=== PATIENT | male | born 1955 | race Caucasian/White ===

== ENCOUNTER 2016-04-25 20:38 | Emergency (ER) | payer BC ==
[2016-04-25] MEDS ORDERED: Pantoprazole 40 MG VIAL ONE (21:22)
[2016-04-25 21:39] LABS: #Basophils 0.1 thou/uL (0.0-0.2); #Eosinphils 0.5 thou/uL (0.0-0.7); #Lymphocytes 1.6 thou/uL (1.20-3.40); #Monocytes 0.6 thou/uL (0.11-0.59); #Neutrophils 4.9 thou/uL (1.40-6.50); %Basophils 1.3 % (0.0-1.0); %Lymphocytes 20.6 % (21.0-51.0); %Monocytes 7.5 % (0.0-10.0); Hematocrit 44.8 % (42.0-52.0); Mean Platelet Volume 10.1 fL (7.4-10.4); Red Blood Cell (RBC) Count 4.96 mill/uL (4.70-6.10); White Blood Cell (WBC) Count 7.7 thou/uL (4.8-10.8)
[2016-04-25 21:49] LABS: PTT 24.3 SEC (22.9-36.1); Prothrombin Time 12.7 SEC (12.0-14.7)
[2016-04-25 21:56] LABS: ALT (SGPT) 57 U/L (0-55); AST (SGOT) 29 U/L (5-34); Alkaline Phosphatase 61 U/L (40-150); Anion Gap 16 mmol/L (10-20); BUN (Urea Nitrogen) 14 mg/dL (8.4-25.7); Bilirubin, Total 0.8 mg/dL (0.2-1.2); Calc. Creatinine Clearance 0 mL/min (70-130); Calcium 8.8 mg/dL (7.8-10.44); Carbon Dioxide 18 mmol/L (22-29); Chloride 101 mmol/L (98-107); Estimated GFR-MDRD 46; Globulin 2.6 g/dL (2.4-3.5); Protein, Total 6.4 g/dL (6.0-8.3)
[2016-04-25] MEDS ORDERED: Lorazepam 2 MG/ML VIAL ONE (22:43)
--- NOTE | 2016-04-25 22:43 | RAD ---
PORTABLE FRONTAL CHEST RADIOGRAPH 04/25/2016 COMPARISON: None. HISTORY: Nasogastric tube placement. FINDINGS: Nasogastric tube is difficult to visualize on this examination secondary to technique and body habit us. It appears to extend into the epigastric region. No focal consolidation or alveolar edema. IMPRESSION: Faintly visualized nasogastric tube appears to extend into the left upper quadrant medially. POS: [facility]
[2016-04-26] MEDS ORDERED: Fentanyl 100 MCG/2 ML VIAL ONE ×2 (00:03→02:32)
[2016-04-26] MEDS ORDERED: Protamine Sulfate 250 MG/25 ML VIAL ONE (07:21)
[2016-04-26] MEDS ORDERED: Pantoprazole 40 MG VIAL ONE ×2 (07:21→07:24)
[2016-04-26] MEDS ORDERED: Sodium Chloride 0.9% 100 ML ONE (07:25)
[2016-04-26 08:00] LABS: #Basophils 0.1 thou/uL (0.0-0.2); #Eosinphils 0.5 thou/uL (0.0-0.7); #Lymphocytes 1.7 thou/uL (1.20-3.40); #Monocytes 0.6 thou/uL (0.11-0.59); #Neutrophils 5.9 thou/uL (1.40-6.50); %Basophils 0.9 % (0.0-1.0); %Eosinophils 5.9 % (0.0-10.0); %Lymphocytes 19.5 % (21.0-51.0); Hematocrit 45.9 % (42.0-52.0); Mean Platelet Volume 10.4 fL (7.4-10.4); Red Blood Cell (RBC) Count 5.08 mill/uL (4.70-6.10); White Blood Cell (WBC) Count 8.9 thou/uL (4.8-10.8)
[2016-04-26 12:31] LABS: #Basophils 0.1 thou/uL (0.0-0.2); #Eosinphils 0.5 thou/uL (0.0-0.7); #Lymphocytes 1.7 thou/uL (1.20-3.40); #Monocytes 0.7 thou/uL (0.11-0.59); #Neutrophils 6.2 thou/uL (1.40-6.50); %Basophils 0.8 % (0.0-1.0); %Eosinophils 5.4 % (0.0-10.0); %Lymphocytes 18.5 % (21.0-51.0); %Monocytes 7.4 % (0.0-10.0); Hematocrit 46.1 % (42.0-52.0); Red Blood Cell (RBC) Count 5.11 mill/uL (4.70-6.10); White Blood Cell (WBC) Count 9.1 thou/uL (4.8-10.8)
--- NOTE | 2016-04-26 14:47 | ERRECORD ---
[facility] EMERGENCY RECORD HPI GI BLEED (23:55 JLOY) CHIEF COMPLAINT: Patient presents for evaluation of hematemesis, Number of times: 1, described as bright red blood, Pt was eating dinner and felt the food 'get stuck' over lower chest. Eventually he vomited small food and bile mixed with a large amount of bright red blood. Still with some epigastric pressure. No more vomiting. Pt has a history of episodes of food feeling stuck over the past year. No previous vomiting. No melena or hematochezia. HISTORIAN: History provided by patient, History provided by patient's family. LOCATION: Symptoms are localized, most severe in the epigastrium. QUALITY: Pain is dull in nature, described as pressure-like. TIME COURSE: Sudden onset of symptoms. ASSOCIATED WITH: No associated abdominal pain, No associated chills, No associated dizziness, No associated fever, No associated loss of appetite, No associated nausea, No associated syncope, No associated inability to tolerate oral intake, Associated with vomiting, Number of times: 1, No associated weakness. EXACERBATED BY: Patient's condition exacerbated by nothing. RELIEVED BY: Patient's condition relieved by nothing. RISK FACTOR: No risk factors for GI bleed. ROS (23:58 JL) CONSTITUTIONAL: Historian denies chills, denies fever. ENT: Historian denies rhinorrhea, denies sore throat. CARDIOVASCULAR: Historian denies dyspnea on exertion, denies palpitations. lower chest pressure. RESPIRATORY: Historian denies cough, denies shortness of breath, denies sputum. GI: Historian denies abdominal pain, denies diarrhea, reports hematemesis, denies hematochezia, denies melena, denies nausea, reports vomiting. SKIN: Historian denies rash, denies skin changes. NEUROLOGIC: Historian denies dizziness, denies headache. PAST MEDICAL HISTORY MEDICAL HISTORY: Notes: HERNIA, Flu vaccine not up to date, Tetanus not up to date, Pneumococcal vaccine not up to date, Past medical history includes history of hypertension. Flu vaccine not up to date, Tetanus not up to date, Pneumococcal vaccine not up to date, Past medical history includes history of diabetes, Type II. (20:53 [facility]) MALE SURGICAL HISTORY: MASS REMOVED FROM SHOULDER (15 YEARS AGO), Surgical history of hernia repair, las kidney stone was over 1 year ago; hx of lithotripsy many yrs ago. (20:53 [facility]) PSYCHIATRIC HISTORY: No previous psychiatric history. (20:53 [facility]) SOCIAL HISTORY: Patient is a former tobacco user, &a-1R&a+25V*p+0X*[id number]*c202B*c15G*c2P*p-0X&a-25V&a+1R Name: Benji Burton : 1955 M60 MedRec: [id number] AcctNum: [id number] Prepared: MonApr 26, 2016 16:09 by Interface Page 1 of 4 pMD [facility] RECORD smoked cigarettes, Patient quit smoking more than 10 years ago. (20:53 [facility]) NOTES: Nursing records reviewed, Agree with nursing records. (23:59 [facility]) KNOWN ALLERGIES No Known Drug Allergies CURRENT MEDICATIONS (20:49 [facility]) lisinopril: TABLET : Strength - 10 mg : ORAL Patient Dose: 1 tab(s) Oral 2 times a day. VITAL SIGNS VITAL SIGNS: Temp: 97.9 (Oral), Time: 04/25/2016 20:50. (20:50 [facility]) BP: 147/91, Pulse: 72, Resp: 16, Pain: 1, O2 sat: 97 on Room Air, Time: 04/25/2016 21:30. (21:30 [facility]) BP: 160/81, Pulse: 67, Resp: 18, Pain: 1, O2 sat: 96 on Room Air, Time: 04/25/2016 20:51. (20:51 [facility]) BP: 136/89, Pulse: 70, Resp: 16, O2 sat: 96 on Room Air, Time: 04/25/2016 21:15. (21:15 [facility]) BP: 136/91, Pulse: 82, Resp: 18, Pain: 5, O2 sat: 93 on Room Air, Time: 04/26/2016 00:15. (MonApr 26, 2016 00:15 [facility]) BP: 136/86, Pulse: 74, Resp: 18, O2 sat: 92 on Room Air, Time: 04/26/2016 02:00. (MonApr 26, 2016 02:00 [facility]) Pain: 5, Time: 04/26/2016 02:30. (MonApr 26, 2016 02:30 [facility]) BP: 148/86, Pulse: 69, Resp: 18, O2 sat: 92 on Room Air, Time: 04/26/2016 03:00. (MonApr 26, 2016 03:00 [facility]) BP: 137/96, Pulse: 73, Resp: 18, Pain: 3, O2 sat: 92 on Room Air, Time: 04/26/2016 04:00. (MonApr 26, 2016 04:00 [facility]) BP: 139/89, Pulse: 75, Resp: 18, O2 sat: 95 on Room Air, Time: 04/26/2016 05:00. (MonApr 26, 2016 05:00 [facility]) BP: PT/, Time: 04/26/2016 02:30. (MonApr 26, 2016 02:30 [facility]) BP: 130/93, Pulse: 75, Resp: 18, O2 sat: 95 on Room Air, Time: 04/26/2016 06:00. (MonApr 26, 2016 06:00 [facility]) BP: 136/94, Pulse: 80, Resp: 18, O2 sat: 95, Time: 04/26/2016 07:46. (MonApr 26, 2016 07:46 JPAR) BP: 120/86, Pulse: 75, Resp: 17, O2 sat: 95, Time: 04/26/2016 09:52. (MonApr 26, 2016 09:52 JPAR) BP: 136/89, Pulse: 77, Resp: 17, O2 sat: 95, Time: 04/26/2016 10:50. (MonApr 26, 2016 10:50 JPAR) BP: 132/87, Pulse: 78, Resp: 18, O2 sat: 95, Time: 04/26/2016 11:41. (MonApr 26, 2016 11:41 JPAR) BP: 122/90, Pulse: 79, Resp: 19, O2 sat: 95, Time: 04/26/2016 12:12. (MonApr 26, 2016 12:12 JPAR) BP: 131/89, Pulse: 82, Resp: 20, Temp: 96.9, Pain: 0, O2 sat: 95 on RA, Time: 04/26/2016 14:22. (MonApr 26, 2016 14:22 [facility]) PHYSICAL EXAM (23:59 JL) &a-1R&a+25V*p+0X*t8943R*c202B*c15G*c2P*p-0X&a-25V&a+1R Name: Benji Burton : 1955 M60 MedRec: [id number] AcctNum: [id number] Prepared: MonApr 26, 2016 16:09 by Interface Page 2 of 4 pMD [facility] RECORD CONSTITUTIONAL: Vital Signs Reviewed, Patient appears non toxic, Patient alert and oriented to person, place and time. EYES: Eye exam included findings of eyelids normal to inspection, Pupils equally round and reactive to light, Conjunctiva normal. ENT: Pharynx exam normal, Uvula exam normal, Tonsil exam normal, Mouth exam normal, mucous membranes moist. NECK: Neck exam included findings of normal range of motion, Trachea midline, no cervical adenopathy. RESPIRATORY CHEST: Respiratory exam included findings of no respiratory distress, Breath sounds clear, No wheezing, No rales, No rhonchi, Chest exam included findings of chest movement symmetrical. CARDIOVASCULAR: Cardiovascular exam included findings of heart rate regular rate and rhythm, Heart sounds normal. ABDOMEN MALE: Abdominal exam included findings of abdomen nontender, Bowel sounds normal. BACK: Back exam included findings of normal inspection. UPPER EXTREMITY: Upper extremity exam included findings of inspection normal, Radial pulse normal, no cyanosis, no clubbing, no edema. LOWER EXTREMITY: Lower extremity exam included findings of inspection normal, no edema, no calf tenderness. NEURO: Jeimy coma scale 15, Neuro exam findings include patient oriented to person, place and time, Speech normal. SKIN: Skin exam included findings of skin warm, dry, and normal in color, no rash. PSYCHIATRIC: Normal affect. MEDICATION ADMINISTRATION SUMMARY Drug Name: Protonix intravenous, Dose Ordered: 8 mg/hr, Route: IV Piggy Back, Status: Given, Time: 07:36 04/26/2016, Drug Name: Protonix intravenous, Dose Ordered: 40 mg, Route: IV Push, Status: Given, Time: 07:34 04/26/2016, Drug Name: fentaNYL (PF) injection, Dose Ordered: 50 mcg, Route: IV Push, Status: Given, Time: 02:37 04/26/2016, Drug Name: fentaNYL (PF) injection, Dose Ordered: 50 mcg, Route: IV Push, Status: Given, Time: 00:13 04/26/2016, Drug Name: LORazepam injection, Dose Ordered: 0.5 mg, Route: IV Push, Status: Given, Time: 22:40 04/25/2016, Drug Name: Protonix intravenous, Dose Ordered: 40 mg, Route: IV Push, Status: Given, Time: 21:32 04/25/2016, Detailed record available in Medication Service section. DOCTOR NOTES RE-EVALUATION: Routine re-evaluation, after observation, Routine re-evaluation, after administration of, protonix, The patient's condition has improved, NG tube drainage clearing up. will recheck H & H. plan Protonix drip. Still awaiting bed at the main. (MonApr 26, 2016 07:20 MP[facility]) Routine re-evaluation, after observation, Routine re-evaluation, after &a-1R&a+25V*p+0X*o1956G*c202B*c15G*c2P*p-0X&a-25V&a+1R Name: Benji Burton : 1955 M60 MedRec: [id number] AcctNum: [id number] Prepared: MonApr 26, 2016 16:09 by Interface Page 3 of 4 pMD [facility] administration of, IV Protonix, Gut rest., No more bleeding. H & H has stabilized. Pt tolerated suction being turned off. Long discussion with pt and spouse concerning discharge and follow up care. Pt overall doing well. Will discharge to have pt follow up with GI. (MonApr 26, 2016 13:17 MPUR) TEXT: Dr. Chance accepted the transfer to [facility] ER. Due to no room in the ER there the patient will hold here until a bed opens up. Discussed with patient and he opted to wait rather than transfer to another hospital. (MonApr 26, 2016 00:28 [facility]) D/W: Discussed this case with Dr. Kain Robert MD, the tax services professional physician, Discussed tx. so far, response, He agreed pt ready for DC. He will see tomorrow in office. (MonApr 26, 2016 16:04 MPUR) PROBLEM LIST No recorded problems DIAGNOSIS (MonApr 26, 2016 00:13 RIKKI) FINAL: PRIMARY: HEMATEMESIS. PRESCRIPTION (MonApr 26, 2016 13:36 MPUR) Protonix oral: TABLET, DELAYED RELEASE (ENTERIC COATED) : 40 mg : ORAL : Quantity: 1 Unit: tab(s) Route: ORAL Schedule: See Notes Dispense: 20 May substitute. Refills: No Refills . NOTES: BID for 6 days, then QHS No Refills. DISPOSITION PATIENT: Disposition Type: Transfer, Disposition: Transfer to [facility]. (MonApr 26, 2016 00:13 RIKKI) Disposition Type: Discharge, Disposition: *Discharge Home. (MonApr 26, 2016 13:35 MPHYUN) Patient left the department. (MonApr 26, 2016 14:32 REID) Neves: RIKKI=MD Dustin, Nguyễn BARBER=BENNY Moreno, Reji CARMONA=BENNY Hdez, Kay MATHEWS=Johana Dunaway=MD Ceferino, Ranjan PRIDE=BENNY Aviles, Octavia &a-1R&a+25V*p+0X*[id number]*c202B*c15G*c2P*p-0X&a-25V&a+1R Name: Benji Burton : 1955 M60 MedRec: [id number] AcctNum: [id number] Prepared: MonApr 26, 2016 16:09 by Interface Page 4 of 4 pMD MTDD
--- NOTE | 2016-04-26 14:49 | PICIS ---
[facility] EMERGENCY RECORD COMMUNICATIONS (MonApr 26, 2016 12:56 JPAR) COMMUNICATIONS: Notes: attempted Dr. Mills by phone 4 times w/o success. ER MD requests consult with head golf professional GI, transfer center contacted for consult. TRIAGE (MonApr 25, 2016 20:49 [facility]) TRIAGE NOTES: WHILE EATING DINNER THIS EVENING, FELT LIKE FOOD GOT STUCK. A FEW MIN LATER PT VOMITED FOOD AND "QUITE A BIT" OF BLOOD. (MonApr 25, 2016 20:49 [facility]) PATIENT: NAME: Benji Burton, AGE: 60, GENDER: male, : Mon1955, TIME OF GREET: MonApr 25, 2016 20:38, PREFERRED LANGUAGE: Mongolian, ETHNICITY: Not or , ECODE BILLING MAP: [facility], SSN: [id number], Zip Code: [address], KG WEIGHT: 88.45 (est.), PHONE: , , , PERSON ID: [id number], PCP: Kasey ALMONTE, GAYLA. (MonApr 25, 2016 20:49 [facility]) COMPLAINT: V BLOOD,EARLIER TODAY. (MonApr 25, 2016 20:49 [facility]) ADMISSION: URGENCY: 3 Urgent, ADMISSION SOURCE: Home, TRANSPORT: CAR, BED: ER -03. (MonApr 25, 2016 20:49 [facility]) ASSESSMENT: Symptoms began 04/25/2016 20:00. (20:53 [facility]) PAIN: Patient complains of pain described as, pressure, on a scale 0-10 patient rates pain as 1, Location CHEST. (20:53 [facility]) IMMUNIZATIONS: Flu vaccine not up to date, Tetanus not up to date, Pneumococcal vaccine not up to date. (20:53 [facility]) SIRS SCORING: Heart Rate 55-109 (0), Temp range 96.8-101.1 (0), respiratory rate 12-24 (0), Mental Status altered: no (0). (20:53 [facility]) TRIAGE SCREENING: Patient denies suicidal ideation, Patient denies presence of domestic violence. (20:53 [facility]) TREATMENTS IN PROGRESS: Treatments given Prehospital: 2 BENADRYL @ 1900. (20:53 [facility]) PROVIDERS: TRIAGE NURSE: Kay Hdez RN. (MonApr 25, 2016 20:49 [facility]) VITAL SIGNS: Temp 97.9, (Oral), Time 04/25/2016 20:50. (20:50 [facility]) PREVIOUS VISIT ALLERGIES: No Known Drug Allergies. (MonApr 25, 2016 20:49 [facility]) No Known Drug Allergies. (20:53 [facility]) KNOWN ALLERGIES No Known Drug Allergies CURRENT MEDICATIONS (20:49 [facility]) lisinopril: TABLET : Strength - 10 mg : ORAL Patient Dose: 1 tab(s) Oral 2 times a day. VITAL SIGNS VITAL SIGNS: Temp: 97.9 (Oral), Time: 04/25/2016 20:50. (20:50 &a-1R&a+25V*p+0X*p4127W*c202B*c15G*c2P*p-0X&a-25V&a+1R Name: Benji Burton Dani : 1955 M60 MedRec: [id number] AcctNum: [id number] Prepared: MonApr 26, 2016 16:15 by Interface Page 1 of 17 pMD [facility] EMERGENCY RECORD [facility]) BP: 147/91, Pulse: 72, Resp: 16, Pain: 1, O2 sat: 97 on Room Air, Time: 04/25/2016 21:30. (21:30 [facility]) BP: 160/81, Pulse: 67, Resp: 18, Pain: 1, O2 sat: 96 on Room Air, Time: 04/25/2016 20:51. (20:51 [facility]) BP: 136/89, Pulse: 70, Resp: 16, O2 sat: 96 on Room Air, Time: 04/25/2016 21:15. (21:15 [facility]) BP: 136/91, Pulse: 82, Resp: 18, Pain: 5, O2 sat: 93 on Room Air, Time: 04/26/2016 00:15. (MonApr 26, 2016 00:15 [facility]) BP: 136/86, Pulse: 74, Resp: 18, O2 sat: 92 on Room Air, Time: 04/26/2016 02:00. (MonApr 26, 2016 02:00 [facility]) Pain: 5, Time: 04/26/2016 02:30. (MonApr 26, 2016 02:30 [facility]) BP: 148/86, Pulse: 69, Resp: 18, O2 sat: 92 on Room Air, Time: 04/26/2016 03:00. (MonApr 26, 2016 03:00 [facility]) BP: 137/96, Pulse: 73, Resp: 18, Pain: 3, O2 sat: 92 on Room Air, Time: 04/26/2016 04:00. (MonApr 26, 2016 04:00 [facility]) BP: 139/89, Pulse: 75, Resp: 18, O2 sat: 95 on Room Air, Time: 04/26/2016 05:00. (MonApr 26, 2016 05:00 [facility]) BP: PT/, Time: 04/26/2016 02:30. (MonApr 26, 2016 02:30 [facility]) BP: 130/93, Pulse: 75, Resp: 18, O2 sat: 95 on Room Air, Time: 04/26/2016 06:00. (MonApr 26, 2016 06:00 [facility]) BP: 136/94, Pulse: 80, Resp: 18, O2 sat: 95, Time: 04/26/2016 07:46. (MonApr 26, 2016 07:46 JPAR) BP: 120/86, Pulse: 75, Resp: 17, O2 sat: 95, Time: 04/26/2016 09:52. (MonApr 26, 2016 09:52 JPAR) BP: 136/89, Pulse: 77, Resp: 17, O2 sat: 95, Time: 04/26/2016 10:50. (MonApr 26, 2016 10:50 JPAR) BP: 132/87, Pulse: 78, Resp: 18, O2 sat: 95, Time: 04/26/2016 11:41. (MonApr 26, 2016 11:41 JPAR) BP: 122/90, Pulse: 79, Resp: 19, O2 sat: 95, Time: 04/26/2016 12:12. (MonApr 26, 2016 12:12 JPAR) BP: 131/89, Pulse: 82, Resp: 20, Temp: 96.9, Pain: 0, O2 sat: 95 on RA, Time: 04/26/2016 14:22. (MonApr 26, 2016 14:22 REZE) NURSING ASSESSMENT: ABDOMEN (20:50 [facility]) CONSTITUTIONAL: Complex assessment performed, Patient arrives ambulatory, Gait steady, History obtained from patient, Patient appears comfortable, Patient cooperative, Patient alert, Oriented to person, place and time, Skin warm, Skin dry, Skin normal in color, Mucous membranes pink, Mucous membranes moist, Patient is well-groomed, Patient complains of VOMITTED BLOOD/CHEST PRESSURE. PAIN: pressure pain, MID CHEST, Onset of pain 04/25/2016 20:00, on a scale 0-10 patient rates pain as 1, PT WAS EATING WHEN FOOD GOT STUCK. STATES HE WAS NOT CHOKING BUT COULD FEEL IT IN HIS CHEST. ABDOMEN: Abdomen assessment findings include abdomen symmetrical, no discolorations, Abdomen soft, non-tender, Bowel sound normal, no associated nausea, Associated with vomiting, history of vomiting, Number of times: 1, PT COMITTED FOOD AND BLOOD. &a-1R&a+25V*p+0X*k4692H*c202B*c15G*c2P*p-0X&a-25V&a+1R Name: Benji Burton : 1955 M60 MedRec: [id number] AcctNum: [id number] Prepared: MonApr 26, 2016 16:15 by Interface Page 2 of 17 pMD [facility] EMERGENCY RECORD SAFETY: Side rails up, Cart/Stretcher in lowest position, Family at bedside, Call light within reach, Hospital ID band on. NURSING ASSESSMENT: SKIN (MonApr 26, 2016 06:02 [facility]) SKIN: Skin assessment findings include skin warm, Skin dry, Skin normal in color, Inspection findings include: No pressure ulcer to the shoulder, Inspection findings include no pressure ulcer to the elbow, Inspection findings include no pressure ulcers to the hip, Inspection findings include no pressure ulcer to the sacrum, Inspection findings include no pressure ulcer to the heel, Inspection findings include no pressure ulcer, Inspection findings include no pressure ulcer. TUBES AND PORTS: Nasogastric tube present, 16Fr, to the right nare, to low intermittent suction, draining coffee ground fluid. NURSING PROCEDURE: BEDSIDE RADIOLOGY (22:29 SBRA) PATIENT IDENTIFIER: Patient actively involved in identification process, Patient's identity verified by patient stating name, Patient's identity verified by hospital ID bracelet. BEDSIDE RADIOLOGY: Bedside radiology performed by COLBY, Portable chest x-ray performed. NURSING PROCEDURE: BEDSIDE SIRS TESTING (MonApr 26, 2016 06:01 [facility]) SCORES: Heart Rate 55-109 (0), Temp range 96.8-101.1 (0), respiratory rate 12-24 (0), Latest WBC 3-14.9 (0), Mental Status altered: no (0), Infection or Suspected Infection: No. NURSING PROCEDURE: BELONGINGS (MonApr 26, 2016 03:12 KASA) BELONGINGS: boots, Belongings sent home with family member, name: Kyra -. NURSING PROCEDURE: COMMUNICATIONS COMMUNICATIONS: Admissions department, notified at 2339, Person contacted Barbara in transfer center, Contacted to check bed status, ERMD requesting to transfer patient to [facility] for higher level of care. Informed nurse that if transferred will need to hold pt at current facility as there is no ER bed available at this time. ERMD informed and will discuss with patient and family. Will call back. (23:39 KASA) Admissions department, notified at 0009 called back, Person contacted Barbara in transfer center, Contacted to admit the patient, Transfer centered contacted per ERMD to start transfer process to [facility] Dx: Upper GI Bleed Accepting MD: Meron @0012 Accepting [facility] Admin: Sung JeffyLynnesteban. Doc to Doc complete. (MonApr 26, 2016 00:12 KASA) Notes: TRANSFER CENTER CONTACTED ABOUT TRANSFER STATUS. TRANSFER &a-1R&a+25V*p+0X*f7124E*c202B*c15G*c2P*p-0X&a-25V&a+1R Name: Benji Burton Dani : 1955 M60 MedRec: [id number] AcctNum: [id number] Prepared: MonApr 26, 2016 16:15 by Interface Page 3 of 17 D [facility] EMERGENCY RECORD CENTER WILL CONTACT ED AT 0800 WITH UPDATE ON STATUS. (MonApr 26, 2016 04:00 [facility]) NURSING PROCEDURE: DISCHARGE NOTE (MonApr 26, 2016 14:22 REZE) DISCHARGE: Patient discharged to home, ambulating without assistance, family driving, accompanied by //partner, Summary of Care printed/ provided, Patient requested and was provided an electronic copy of Discharge Instructions, Transition record given to patient, Discharge instructions given to patient, Simple or moderate discharge teaching performed, by OCTAVIA AVILES RN, Instructed to follow up with GI doctor on April 28 and doctor Gene. If symptoms worsen before follow up return to Er. Soft bland diet. Drink plenty of fluids and take medication as prescribed, Prescriptions given and instructions on side effects given, Name of prescription(s) given: protonix, Above person(s) verbalized understanding of discharge instructions and follow-up care. BELONGINGS: Belongings remain with patient, Valuables remain with patient. VITAL SIGNS: BP: 131, / 89, Pulse: 82, Resp: 20, Temp: 96.9, Pain: 0, O2 sat: 95, on: RA. NURSING PROCEDURE: EKG CHART (20:56 [facility]) PATIENT IDENTIFIER: Patient actively involved in identification process, Patient's identity verified by patient stating name, Patient's identity verified by patient stating date, Patient's identity verified by hospital ID bracelet. EK lead EKG performed on the left chest, done by BENNY MITCHELL, first EKG. NURSING PROCEDURE: GASTRIC TUBE (22:15 [facility]) GASTRIC TUBE: Gastric tube indicated for possible gastrointestinal bleed, 16fr gastric tube inserted, into the right nare, in two attempts, Placement verified by auscultation, Placement verified by patient able to speak without difficulty, Placement verified by x-ray, Gastric tube to low intermittent suction, Lavaged with saline, amount (mL) 500, Wall suction used, Total output (mL) 500, Gastroccult positive, Control line positive. NURSING PROCEDURE: INTAKE AND OUTPUT (22:45 [facility]) INTAKE AND OUTPUT: Gastric tube intake(ml): 500, Total Intake (ml): 500ml, Gastric tube output(ml): 500, Total Output (ml): 500ml, Grand Total: Output is equal to intake. NURSING PROCEDURE: IV PATIENT IDENITIFIER: Patient actively involved in identification process, Patient's identity verified by patient stating name, Patient's identity verified by patient stating date, Patient's identity verified by hospital ID bracelet. (21:30 [facility]) IV SITE 1: IV established, to the right antecubital, using an 18 gauge catheter, in one attempt, IV site prepped with Chloroprep, &a-1R&a+25V*p+0X*n6160C*c202B*c15G*c2P*p-0X&a-25V&a+1R Name: Benji Burton : 1955 M60 MedRec: [id number] AcctNum: [id number] Prepared: MonApr 26, 2016 16:15 by Interface Page 4 of 17 pMD [facility] EMERGENCY RECORD Saline lock established, Flushed with normal saline (mls): 10mLs, Labs drawn at time of placement, labeled in the presence of the patient and sent to lab, Notes: IV site C/D/I. no pain, redness, or swelling. IV start kit/extension tubing used. (21:30 [facility]) FOLLOW-UP SITE 1: After procedure, 2x2 dressing applied, IV discontinued, due to patient being discharged, catheter intact. (MonApr 26, 2016 14:20 REZE) SAFETY: Side rails up, Cart/Stretcher in lowest position, Call light within reach, Hospital ID band on. (21:30 [facility]) NURSING PROCEDURE: LAB DRAW PATIENT IDENTIFIER: Patient actively involved in identification process, Patient's identity verified by patient stating name, Patient's identity verified by patient stating date, Patient's identity verified by hospital ID bracelet, Patient's identity verified by family member. (MonApr 26, 2016 07:52 JPAR) Patient actively involved in identification process, Patient's identity verified by patient stating name, Patient's identity verified by patient stating date, Patient's identity verified by hospital ID bracelet, Patient's identity verified by family member. (MonApr 26, 2016 12:20 JPAR) LAB DRAW: Lab draw indicated for inability to obtain labs from IV site, Lab draw indicated for obtaining specimens for evaluation, Subsequent lab draw performed, by venipuncture, from left hand, in one attempt, Lab specimens labeled in the presence of the patient and sent to lab. (MonApr 26, 2016 07:52 JPAR) Lab draw indicated for inability to obtain labs from IV site, Lab draw indicated for obtaining specimens for evaluation, Subsequent lab draw performed, by venipuncture, from right hand, in one attempt, Lab specimens labeled in the presence of the patient and sent to lab. (MonApr 26, 2016 12:20 JPAR) FOLLOW-UP: After procedure, dressing applied to site, After procedure, no swelling at site, After procedure, no active bleeding from site. (MonApr 26, 2016 07:52 JPAR) After procedure, dressing applied to site, After procedure, no swelling at site, After procedure, no active bleeding from site. (MonApr 26, 2016 12:20 JPAR) SAFETY: Side rails up, Cart/Stretcher in lowest position, Family at bedside, Call light within reach, Hospital ID band on. (MonApr 26, 2016 07:52 JPAR) Side rails up, Cart/Stretcher in lowest position, Family at bedside, Call light within reach, Hospital ID band on. (MonApr 26, 2016 12:20 JPAR) NURSING PROCEDURE: NURSE NOTES NURSES NOTES: Patient assisted to bathroom with steady gait. (MonApr 26, 2016 01:40 [facility]) Notes: PT RESTING QUIETLY IN BED. LIGHTS OFF. WARM BLANKET GIVEN TO PT AND PTS FOR COMFORT. NAD. RR EVEN AND UNLABORED. VSS. (MonApr 26, 2016 02:15 [facility]) &a-1R&a+25V*p+0X*m8113V*c202B*c15G*c2P*p-0X&a-25V&a+1R Name: Benji Burton Dani : 1955 M60 MedRec: [id number] AcctNum: [id number] Prepared: MonApr 26, 2016 16:15 by Interface Page 5 of 17 pMD [facility] EMERGENCY RECORD Notes: PT REQUESTING PAIN MEDS. MADE AWARE. ORDER RECEIVED FOR 50MCG FENTANYL. PT IN NAD. RR EVEN AND UNLABORED. HOB ELEVATED. VSS. AT BEDSIDE. (MonApr 26, 2016 02:30 [facility]) Notes: PT RESTING QUIETLY IN BED. REPORTS SLIGHT HEADACHE RATED 3/10. DESCRIBED TOLERABLE. NO PAIN MEDS NEEDED AT THIS TIME. RR EVEN AND UNLABORED. NAD. VSS. HOB ELEVATED. (MonApr 26, 2016 04:00 [facility]) Notes: PT ASLEEP IN BED. HOB ELEVATED. NAD. RR EVEN AND UNLABORED. VSS. (MonApr 26, 2016 05:00 [facility]) Notes: PT ASLEEP IN BED IN NAD. RR EVEN AND UNLABORED. VSS. HOB ELEVATED. NG TUBE ON LOW INTERMITTENT SUCTION. WAITING FOR BED AT [facility]. (MonApr 26, 2016 06:23 [facility]) Patient in no apparent distress, Notes: Pt up to restroom in no distress vitals stable no visible blood present in suction container. after pt uses restroom ice chips given to keep mouth moist and pt reconnected to monitors. IV line is flushed without complications. (MonApr 26, 2016 07:15 JPAR) Notes: Pt spouse at bedside, pt informed of plan of care, will contact transfer center @ 8am to check on status of transfer. (MonApr 26, 2016 07:40 JPAR) Patient in no apparent distress, Patient re-positioned to high Lopez's position, Notes: Transfer center contacted, no bed available anytime soon per Kelley at transfer center. Pt informed that no bed available. (MonApr 26, 2016 08:08 JPAR) Patient in no apparent distress, Notes: Suction to NG turned off per MD verbal order, pt H&H to be redrawn @ 12:00 and at that time will contact Dr. Mills with results and if no complications can discharge pt home on protonix and follow up with GI in office. (MonApr 26, 2016 10:05 JPAR) Patient in no apparent distress, Notes: IV site checked no issues present IV protonix running w/o signs of infiltration. (MonApr 26, 2016 11:42 JPAR) Notes: Follow up appointment for Pt set up with Dr. Kain Robert in [place] at office Apr 28 at 9am. Information given to pt spouse. (MonApr 26, 2016 13:47 JPAR) Beverage given to patient, Notes: NGT discontinued and cup of water given to patient. If tolerates will dc home. (MonApr 26, 2016 13:56 REZE) Notes: output from gastric tube 300 ml. (MonApr 26, 2016 14:00 REZE) ORDER DETAILS Order Name: VENEER STOCK GRADER ED, Status: Done, Time: 21:35 04/25/2016, User: KRISTINE, - Ordered for: MD Chan Joshua, - Entered by: MD Chan Joshua - MonApr 25, 2016 21:16, - Quantity: 1, Order Name: CBC with Differential, Status: Active, Time: 12:15 04/26/2016, User: ELISABETH, &a-1R&a+25V*p+0X*g8237H*c202B*c15G*c2P*p-0X&a-25V&a+1R Name: Benji Burton : 1955 M60 MedRec: [id number] AcctNum: [id number] Prepared: MonApr 26, 2016 16:15 by Interface Page 6 of 17 [facility] EMERGENCY RECORD - Ordered for: MD De La Vega Marcus, - Entered by: BENNY Moreno Jason - MonApr 26, 2016 12:15, - Quantity: 1, Order Name: CBC with Differential, Status: Active, Time: 21:16 04/25/2016, User: RIKKI, - Ordered for: MD Chan Joshua, - Entered by: MD Chan Joshua - Kayden Apr 25, 2016 21:16, - Quantity: 1, Order Name: CBC with Differential, Status: Active, Time: 07:11 04/26/2016, User: RIKKI, - Ordered for: MD Chan Joshua, - Entered by: MD Chan Joshua - MonApr 26, 2016 07:11, - Quantity: 1, Order Name: Comprehensive Metabolic Panel, Status: Active, Time: 21:16 04/25/2016, User: RIKKI, - Ordered for: MD Chan Joshua, - Entered by: MD Chan Joshua - [facility] Apr 25, 2016 21:16, - Quantity: 1, Order Name: EKG 12 Lead in Emergency Room, Status: Active, Time: 05:31 04/26/2016, User: KRISTINE, - Ordered for: MD Chan Joshua, - Entered by: BENNY Hdez Lacey - MonApr 26, 2016 05:31, - Quantity: 1, Order Name: GASTRIC LAVAGE ED, Status: Done, Time: 23:00 04/25/2016, User: KRISTINE, - Ordered for: MD Chan Joshua, - Entered by: MD Chan Joshua - Kayden Apr 25, 2016 23:00, - Quantity: 1, Order Name: Miscellaneous Nurse Order(s), Status: Done, Time: 13:47 04/26/2016, User: ELISABETH, - Ordered for: MD De La Vega Marcus, - Entered by: MD De La Vega Marcus - Apr 26, 2016 13:44, - Quantity: 1, Order Name: NG TUBE PLACEMENT ED, Status: Done, Time: 05:32 04/26/2016, User: KRISTINE, - Ordered for: MD Chan Joshua, - Entered by: BENNY Hdez Lacey - Apr 26, 2016 05:31, - Quantity: 1, Order Name: Occult Blood, Gastric, Status: Active, Time: 23:02 04/25/2016, User: RIKKI, - Ordered for: MD Chan Joshua, - Entered by: MD Chan Joshua - Mon Apr 25, 2016 23:02, - Quantity: 1, Order Name: Protime with INR, Status: Active, Time: 21:16 04/25/2016, User: RIKKI, - Ordered for: MD Chan Joshua, - Entered by: MD Chan Joshua - Kayden Apr 25, 2016 21:16, - Quantity: 1, Order Name: PTT, Status: Active, Time: 21:16 04/25/2016, User: RIKKI, - Ordered for: MD Chan Joshua, &a-1R&a+25V*p+0X*d0985U*c202B*c15G*c2P*p-0X&a-25V&a+1R Name: Benji Burton : 1955 M60 MedRec: [id number] AcctNum: [id number] Prepared: MonApr 26, 2016 16:15 by Interface Page 7 of 17 [facility] EMERGENCY RECORD - Entered by: MD Chan Joshua - Mon Apr 25, 2016 21:16, - Quantity: 1, Order Name: SALINE LOCK, Status: Done, Time: 21:35 04/25/2016, User: [facility], - Ordered for: MD Chan Joshua, - Entered by: MD Chan Joshua - Mon Apr 25, 2016 21:16, - Quantity: 1, Order Name: XR Chest 1 View Portable, Status: Active, Time: 22:28 04/25/2016, User: [facility], - Ordered for: MD Chan Joshua, - Entered by: BENNY Hdez Lacey - Mon Apr 25, 2016 22:28, - Quantity: 1. MEDICATION ADMINISTRATION SUMMARY Drug Name: Protonix intravenous, Dose Ordered: 8 mg/hr, Route: IV Piggy Back, Status: Given, Time: 07:36 04/26/2016, Drug Name: Protonix intravenous, Dose Ordered: 40 mg, Route: IV Push, Status: Given, Time: 07:34 04/26/2016, Drug Name: fentaNYL (PF) injection, Dose Ordered: 50 mcg, Route: IV Push, Status: Given, Time: 02:37 04/26/2016, Drug Name: fentaNYL (PF) injection, Dose Ordered: 50 mcg, Route: IV Push, Status: Given, Time: 00:13 04/26/2016, Drug Name: LORazepam injection, Dose Ordered: 0.5 mg, Route: IV Push, Status: Given, Time: 22:40 04/25/2016, Drug Name: Protonix intravenous, Dose Ordered: 40 mg, Route: IV Push, Status: Given, Time: 21:32 04/25/2016, Detailed record available in Medication Service section. MEDICATION SERVICE fentaNYL (PF) injection: Order: fentaNYL (PF) injection (fentanyl citrate/preservative free) - Dose: 50 mcg : IV Push Ordered by: Nguyễn Chan MD Entered by: Nguyễn Chan MD Apr 26, 2016 00:01 , Acknowledged by: Kay Hdez RN dani Apr 26, 2016 00:02 Documented as given by: Kay Hdez RN dani Apr 26, 2016 00:13 Patient, Medication, Dose, Route and Time verified prior to administration. Amount given: 50MCG, IV SITE #1 IVP, subsequent different medication, Slowly, Awake and alert- acceptable, Catheter placement confirmed via flush prior to administration, IV site without signs or symptoms of infiltration during medication administration, No swelling during administration, No drainage during administration, IV flushed after administration, Correct patient, time, route, dose and medication confirmed prior to administration, Patient advised of actions and side-effects prior to administration, Allergies confirmed and medications reviewed prior to administration. fentaNYL (PF) injection: Order: fentaNYL (PF) injection (fentanyl citrate/preservative free) - Dose: 50 mcg : IV &a-1R&a+25V*p+0X*p8097C*c202B*c15G*c2P*p-0X&a-25V&a+1R Name: Benji Burton : 1955 M60 MedRec: [id number] AcctNum: [id number] Prepared: MonApr 26, 2016 16:15 by Interface Page 8 of 17 pMD [facility] EMERGENCY RECORD Push Ordered by: Nguyễn Chan MD Entered by: Nguyễn Chan MD MonApr 26, 2016 02:33 Documented as given by: Kay Hdez RN MonApr 26, 2016 02:37 Patient, Medication, Dose, Route and Time verified prior to administration. Amount given: 50MCG, IV SITE #1 IVP, repeat same medication, Slowly, Awake and alert- acceptable, Catheter placement confirmed via flush prior to administration, IV site without signs or symptoms of infiltration during medication administration, No swelling during administration, No drainage during administration, IV flushed after administration, Correct patient, time, route, dose and medication confirmed prior to administration, Patient advised of actions and side-effects prior to administration, Allergies confirmed and medications reviewed prior to administration. LORazepam injection: Order: LORazepam injection (lorazepam) - Dose: 0.5 mg : IV Push Ordered by: Nguyễn Chan MD Entered by: Nguyễn Chan MD MonApr 26, 2016 00:01 Documented as given by: Kay Hdez RN [facility] Apr 25, 2016 22:40 Patient, Medication, Dose, Route and Time verified prior to administration. Amount given: 0.5MG, IV SITE #1 IVP, initial medication, Slowly, Awake and alert- acceptable, Catheter placement confirmed via flush prior to administration, IV site without signs or symptoms of infiltration during medication administration, No swelling during administration, No drainage during administration, IV flushed after administration, Correct patient, time, route, dose and medication confirmed prior to administration, Patient advised of actions and side-effects prior to administration, Allergies confirmed and medications reviewed prior to administration. Protonix intravenous: Order: Protonix intravenous (pantoprazole sodium) - Dose: 40 mg : IV Push Ordered by: Nguyễn Chan MD Entered by: Nguyễn Chan MD MonApr 25, 2016 21:18 , Acknowledged by: Bridgette Masterson RN MonApr 25, 2016 21:23 Documented as given by: Kay Hdez RN MonApr 25, 2016 21:32 Patient, Medication, Dose, Route and Time verified prior to administration. Amount given: 40MG, IV SITE #1 IVP, initial medication, Slowly, Awake and alert- acceptable, Catheter placement confirmed via flush prior to administration, IV site without signs or symptoms of infiltration during medication administration, No swelling during administration, No drainage during administration, IV flushed after administration, Correct patient, time, route, dose and medication confirmed prior to administration, Patient advised of actions and side-effects prior to administration, Allergies confirmed and medications reviewed prior to administration. Protonix intravenous: Order: Protonix intravenous (pantoprazole sodium) - Dose: 40 mg : IV Push &a-1R&a+25V*p+0X*l5335M*c202B*c15G*c2P*p-0X&a-25V&a+1R Name: Benji Burton : 1955 M60 MedRec: [id number] AcctNum: [id number] Prepared: MonApr 26, 2016 16:15 by Interface Page 9 of 17 pMD [facility] EMERGENCY RECORD Ordered by: Ranjan De La Vega MD Entered by: Ranjan De La Vega MD MonApr 26, 2016 07:16 , Acknowledged by: Reji Moreno RN MonApr 26, 2016 07:19 Documented as given by: Reji Moreno RN MonApr 26, 2016 07:34 Patient, Medication, Dose, Route and Time verified prior to administration. IV SITE #1 IVP, initial medication, Slowly, Awake and alert- acceptable, Connections checked prior to administration, Line traced prior to administration, Catheter placement confirmed via flush prior to administration, IV site without signs or symptoms of infiltration during medication administration, No swelling during administration, No drainage during administration, IV flushed after administration, Correct patient, time, route, dose and medication confirmed prior to administration, Patient advised of actions and side-effects prior to administration, Allergies confirmed and medications reviewed prior to administration, Patient in position of comfort, Side rails up, Cart in lowest position, Call light in reach. : Follow Up : Response assessment performed, No signs or symptoms of allergic reaction noted, Decreased pain, Decreased symptoms, Site inspection shows, No swelling at administration site, No drainage at administration site, No bleeding at site, No bruising noted at site, _IV SITE #1:_, IV Line flushed after administration, Advised not to ambulate without assistance, Patient in position of comfort, Side rails up, Cart in lowest position, Family at bedside, Call light in reach. (MonApr 26, 2016 08:00 JPMT) Protonix intravenous: Order: Protonix intravenous (pantoprazole sodium) - Dose: 8 mg/hr : IV Piggy Back Ordered by: Ranjan De La Vega MD Entered by: Ranjan De La Vega MD MonApr 26, 2016 07:17 , Acknowledged by: Reji Moreno RN MonApr 26, 2016 07:19 Documented as given by: Reji Moreno RN MonApr 26, 2016 07:36 Patient, Medication, Dose, Route and Time verified prior to administration. IV SITE #1 IVPB or drip, initial infusion, IVPB mixed in: 100ml, Fluid: 0.9NS, Awake and alert- acceptable, Connections checked prior to administration, Line traced prior to administration, Catheter placement confirmed via flush prior to administration, IV site without signs or symptoms of infiltration during medication administration, No swelling during administration, No drainage during administration, IV flushed after administration, Correct patient, time, route, dose and medication confirmed prior to administration, Patient advised of actions and side-effects prior to administration, Allergies confirmed and medications reviewed prior to administration, Patient in position of comfort, Side rails up, Cart in lowest position, Call light in reach. HPI GI BLEED (23:55 JLOY) CHIEF COMPLAINT: Patient presents for evaluation of hematemesis, Number of times: 1, described as &a-1R&a+25V*p+0X*n6623S*c202B*c15G*c2P*p-0X&a-25V&a+1R Name: Benji Burton : 1955 M60 MedRec: [id number] AcctNum: [id number] Prepared: MonApr 26, 2016 16:15 by Interface Page 10 of 17 pMD [facility] EMERGENCY RECORD bright red blood, Pt was eating dinner and felt the food 'get stuck' over lower chest. Eventually he vomited small food and bile mixed with a large amount of bright red blood. Still with some epigastric pressure. No more vomiting. Pt has a history of episodes of food feeling stuck over the past year. No previous vomiting. No melena or hematochezia. HISTORIAN: History provided by patient, History provided by patient's family. LOCATION: Symptoms are localized, most severe in the epigastrium. QUALITY: Pain is dull in nature, described as pressure-like. TIME COURSE: Sudden onset of symptoms. ASSOCIATED WITH: No associated abdominal pain, No associated chills, No associated dizziness, No associated fever, No associated loss of appetite, No associated nausea, No associated syncope, No associated inability to tolerate oral intake, Associated with vomiting, Number of times: 1, No associated weakness. EXACERBATED BY: Patient's condition exacerbated by nothing. RELIEVED BY: Patient's condition relieved by nothing. RISK FACTOR: No risk factors for GI bleed. ROS (23:58 JLOY) CONSTITUTIONAL: Historian denies chills, denies fever. ENT: Historian denies rhinorrhea, denies sore throat. CARDIOVASCULAR: Historian denies dyspnea on exertion, denies palpitations. lower chest pressure. RESPIRATORY: Historian denies cough, denies shortness of breath, denies sputum. GI: Historian denies abdominal pain, denies diarrhea, reports hematemesis, denies hematochezia, denies melena, denies nausea, reports vomiting. SKIN: Historian denies rash, denies skin changes. NEUROLOGIC: Historian denies dizziness, denies headache. PAST MEDICAL HISTORY MEDICAL HISTORY: Notes: HERNIA, Flu vaccine not up to date, Tetanus not up to date, Pneumococcal vaccine not up to date, Past medical history includes history of hypertension. Flu vaccine not up to date, Tetanus not up to date, Pneumococcal vaccine not up to date, Past medical history includes history of diabetes, Type II. (20:53 [facility]) MALE SURGICAL HISTORY: MASS REMOVED FROM SHOULDER (15 YEARS AGO), Surgical history of hernia repair, las kidney stone was over 1 year ago; hx of lithotripsy many yrs ago. (20:53 [facility]) PSYCHIATRIC HISTORY: No previous psychiatric history. (20:53 [facility]) SOCIAL HISTORY: Patient is a former tobacco user, smoked cigarettes, Patient quit smoking more than 10 years ago. (20:53 [facility]) NOTES: Nursing records reviewed, Agree with nursing records. &a-1R&a+25V*p+0X*e6322V*c202B*c15G*c2P*p-0X&a-25V&a+1R Name: Benji Burton : 1955 M60 MedRec: [id number] AcctNum: [id number] Prepared: Lynne Apr 26, 2016 16:15 by Interface Page 11 of 17 pMD [facility] EMERGENCY RECORD (23:59 JL) PHYSICAL EXAM (23:59 JL) CONSTITUTIONAL: Vital Signs Reviewed, Patient appears non toxic, Patient alert and oriented to person, place and time. EYES: Eye exam included findings of eyelids normal to inspection, Pupils equally round and reactive to light, Conjunctiva normal. ENT: Pharynx exam normal, Uvula exam normal, Tonsil exam normal, Mouth exam normal, mucous membranes moist. NECK: Neck exam included findings of normal range of motion, Trachea midline, no cervical adenopathy. RESPIRATORY CHEST: Respiratory exam included findings of no respiratory distress, Breath sounds clear, No wheezing, No rales, No rhonchi, Chest exam included findings of chest movement symmetrical. CARDIOVASCULAR: Cardiovascular exam included findings of heart rate regular rate and rhythm, Heart sounds normal. ABDOMEN MALE: Abdominal exam included findings of abdomen nontender, Bowel sounds normal. BACK: Back exam included findings of normal inspection. UPPER EXTREMITY: Upper extremity exam included findings of inspection normal, Radial pulse normal, no cyanosis, no clubbing, no edema. LOWER EXTREMITY: Lower extremity exam included findings of inspection normal, no edema, no calf tenderness. NEURO: Jeimy coma scale 15, Neuro exam findings include patient oriented to person, place and time, Speech normal. SKIN: Skin exam included findings of skin warm, dry, and normal in color, no rash. PSYCHIATRIC: Normal affect. EVENTS TRANSFER: Triage to Emergency Emergency Room -03. (20:49 [facility]) Emergency Emergency Room -03 to Waiting (Hold Bed). (MonApr 26, 2016 02:52 KASA) Emergency Emergency Room -03 to Waiting (Hold Bed). (MonApr 26, 2016 02:53 KASA) Return to Emergency Emergency Room -03. (MonApr 26, 2016 13:14 JPAR) Emergency Emergency Room -03 to Holding. (MonApr 26, 2016 13:14 JPAR) Emergency Holding to Emergency Room -03. (MonApr 26, 2016 13:18 JPAR) Emergency Emergency Room -03 to Holding (Hold Bed). (MonApr 26, 2016 13:19 JPAR) Removed from Emergency Emergency Room -03. (MonApr 26, 2016 14:32 MCBE) DOCTOR NOTES RE-EVALUATION: Routine re-evaluation, after observation, Routine re-evaluation, after administration of, protonix, The patient's condition has improved, NG tube drainage clearing up. will recheck H & H. plan Protonix drip. Still awaiting bed at the main. (MonApr 26, 2016 07:20 MPUR) Routine re-evaluation, after observation, Routine re-evaluation, after &a-1R&a+25V*p+0X*c4449U*c202B*c15G*c2P*p-0X&a-25V&a+1R Name: Benji Burton Dani : 1955 M60 MedRec: [id number] AcctNum: [id number] Prepared: MonApr 26, 2016 16:15 by Interface Page 12 of 17 pMD [facility] EMERGENCY RECORD administration of, IV Protonix, Gut rest., No more bleeding. H & H has stabilized. Pt tolerated suction being turned off. Long discussion with pt and spouse concerning discharge and follow up care. Pt overall doing well. Will discharge to have pt follow up with GI. (MonApr 26, 2016 13:17 MPUR) TEXT: Dr. Chance accepted the transfer to [facility] ER. Due to no room in the ER there the patient will hold here until a bed opens up. Discussed with patient and he opted to wait rather than transfer to another hospital. (MonApr 26, 2016 00:28 JLOY) D/W: Discussed this case with Dr. Kain Robert MD, the head golf professional physician, Discussed tx. so far, response, He agreed pt ready for DC. He will see tomorrow in office. (MonApr 26, 2016 16:04 MPUR) PROBLEM LIST No recorded problems DIAGNOSIS (MonApr 26, 2016 00:13 JLOY) FINAL: PRIMARY: HEMATEMESIS. DISPOSITION PATIENT: Disposition Type: Transfer, Disposition: Transfer to [facility]. (MonApr 26, 2016 00:13 JLOY) Disposition Type: Discharge, Disposition: *Discharge Home. (MonApr 26, 2016 13:35 MPUR) Patient left the department. (MonApr 26, 2016 14:32 MCBE) INSTRUCTION (MonApr 26, 2016 13:47 MPUR) DISCHARGE: HEMATEMESIS STABLE. FOLLOWUP: Kasey ALMONTE, [facility], Internal Medicine, [address] [facility] [place] [place] [address], [phone], Kasey ROBERT, [place], Gastroenterology, [address] [place] [address], [phone]. SPECIAL: Soft, bland diet, liquids. Follow up with GI appointment [address] am [address] Robert. PRESCRIPTION (MonApr 26, 2016 13:36 MPUR) Protonix oral: TABLET, DELAYED RELEASE (ENTERIC COATED) : 40 mg : ORAL : Quantity: 1 Unit: tab(s) Route: ORAL Schedule: See Notes Dispense: 20 May substitute. Refills: No Refills . NOTES: BID for 6 days, then QHS No Refills. IMAGING *EKG: Image captured from scanner. (21:13 [facility]) *DISCHARGE INSTRUCTIONS RECEIPT: Image captured from scanner. (MonApr 26, 2016 14:38 REZE) *SUPPLY CHARGE SHEET: Image captured from scanner. (MonApr 26, 2016 14:38 REZE) &a-1R&a+25V*p+0X*f8163U*c202B*c15G*c2P*p-0X&a-25V&a+1R Name: Benji Burton : 1955 M60 MedRec: [id number] AcctNum: [id number] Prepared: MonApr 26, 2016 16:15 by Interface Page 13 of 17 pMD [facility] EMERGENCY RECORD ADMIN DIGITAL SIGNATURE: BENNY Aviles, Octavia. (MonApr 26, 2016 14:35 REZE) MD Ceferino, Ranjan. (MonApr 26, 2016 16:06 MPUR) RESULTS RADIOLOGY: XR Chest 1 View Portable Observe DT: MonApr 25, 2016 22:29, CXRP PORTABLE FRONTAL CHEST RADIOGRAPH 04/25/2016 COMPARISON: None. HISTORY: Nasogastric tube placement. FINDINGS: Nasogastric tube is difficult to visualize on this examination secondary to technique and body habit us. It appears to extend into the epigastric region. No focal consolidation or alveolar edema. IMPRESSION: Faintly visualized nasogastric tube appears to extend into the left upper quadrant medially. POS: [facility] . (23:25 [facility]) MICROBIOLOGY: Occult Blood, Gastric: [id number] Collection DT: MonApr 25, 2016 23:11, See comment below , @ ER ROOM#: [id number] Source: Gastric Spec Desc: PENDING, *Occult Blood Gastric POSITIVE for Occult , * Blood - H , Occult blood gastric pH 4 . (23:25 [facility]) LABORATORY: Comprehensive Metabolic Panel Collection DT: MonApr 25, 2016 21:34, *Sodium 131 - L mmol/L, Range (136-145), Potassium 4.1 mmol/L, Range (3.5-5.1), Chloride 101 mmol/L, Range (98-107), *Carbon Dioxide 18 - L mmol/L, Range (22-29), Anion Gap 16 mmol/L, Range (10-20), BUN (Urea Nitrogen) 14 mg/dL, Range (8.4-25.7), *Creatinine 1.55 - H mg/dL, Range (0.7-1.3), Estimated GFR-MDRD 46 , Reference Range for Estimated GFR: Greater than 90, mL/min/1.73 m2 &a-1R&a+25V*p+0X*h8462G*c202B*c15G*c2P*p-0X&a-25V&a+1R Name: Benji Burton : 1955 M60 MedRec: [id number] AcctNum: [id number] Prepared: Lynne Apr 26, 2016 16:15 by Interface Page 14 of 17 pMD [facility] EMERGENCY RECORD NOTE: The MDRD equation has not been validated for use, with the elderly (over 70 years of age), women, patients with, serious comorbid condition or persons with extremes of body size, muscle, mass, or nutritional status. , *Glucose 429 - H mg/dL, Range (70-105), Calcium 8.8 mg/dL, Range (7.8-10.44), Bilirubin, Total 0.8 mg/dL, Range (0.2-1.2), Protein, Total 6.4 g/dL, Range (6.0-8.3), NOTE: Plasma values are generally 0.3 to 0.5 g/dL higher than serum values, due to the presence of fibrinogen. , Albumin 3.8 g/dL, Range (3.5-5.0), Globulin 2.6 g/dL, Range (2.4-3.5), Alb/Glob Ratio 1.5 g/dL, Range (1.2-2.2), Alkaline Phosphatase 61 U/L, Range (40-150), AST (SGOT) 29 U/L, Range (5-34), *ALT (SGPT) 57 - H U/L, Range (0-55). (23:25 [facility]) PTT Collection DT: MonApr 25, 2016 21:34, See comment below , Anticoagulant? NONE Medical Necessity SUSPECT COAGULOPATHY , PTT 24.3 SEC, Range (22.9-36.1). (23:25 [facility]) Protime with INR Collection DT: MonApr 25, 2016 21:34, See comment below , Anticoagulant? NONE Medical Necessity SUSPECT COAGULOPATHY , Prothrombin Time 12.7 SEC, Range (12.0-14.7), INR-International Normal Ratio 0.9 , ATTENTION: READ CAREFULLY , The, recommended therapeutic ranges for oral anticoagulant treatments are: , , Low Intensity: 1.5 - 2.0 Moderate Intensity: 2.0, - 3.0 High Intensity (1): 2.5 - 3.5 High, Intensity (2): 3.0 - 4.0 CRITICAL: >, 4.0 . (23:25 [facility]) CBC with Differential Collection DT: MonApr 25, 2016 21:34, White Blood Cell (WBC) Count 7.7 thou/uL, Range (4.8-10.8), Red Blood Cell (RBC) Count 4.96 mill/uL, Range (4.70-6.10), Hemoglobin 15.6 g/dL, Range (14.0-18.0), Hematocrit 44.8 %, Range (42.0-52.0), Mean Corpuscular Volume 90.3 fl, Range (80.0-94.0), *Mean Corpuscular Hemoglobin 31.5 - H pg, Range (27.0-31.0), Mean Corpuscular HGB CONC 34.9 g/dL, Range (32.0-36.0), *RBC Distribution Width 10.1 - L %, Range (11.5-14.5), &a-1R&a+25V*p+0X*y9223E*c202B*c15G*c2P*p-0X&a-25V&a+1R Name: Micheal Benji Palumbo : 1955 M60 MedRec: [id number] AcctNum: [id number] Prepared: MonApr 26, 2016 16:15 by Interface Page 15 of 17 D [facility] EMERGENCY RECORD Platelet Count 152 thou/uL, Range (130-400), Mean Platelet Volume 10.1 fL, Range (7.4-10.4), %Neutrophils 63.5 %, Range (42.0-75.0), *%Lymphocytes 20.6 - L %, Range (21.0-51.0), %Monocytes 7.5 %, Range (0.0-10.0), %Eosinophils 7.0 %, Range (0.0-10.0), *%Basophils 1.3 - H %, Range (0.0-1.0), #Neutrophils 4.9 thou/uL, Range (1.40-6.50), #Lymphocytes 1.6 thou/uL, Range (1.20-3.40), *#Monocytes 0.6 - H thou/uL, Range (0.11-0.59), #Eosinphils 0.5 thou/uL, Range (0.0-0.7), #Basophils 0.1 thou/uL, Range (0.0-0.2). (23:25 [facility]) CBC with Differential Collection DT: MonApr 26, 2016 07:53, White Blood Cell (WBC) Count 8.9 thou/uL, Range (4.8-10.8), Red Blood Cell (RBC) Count 5.08 mill/uL, Range (4.70-6.10), Hemoglobin 15.9 g/dL, Range (14.0-18.0), Hematocrit 45.9 %, Range (42.0-52.0), Mean Corpuscular Volume 90.4 fl, Range (80.0-94.0), *Mean Corpuscular Hemoglobin 31.3 - H pg, Range (27.0-31.0), Mean Corpuscular HGB CONC 34.6 g/dL, Range (32.0-36.0), *RBC Distribution Width 10.3 - L %, Range (11.5-14.5), Platelet Count 148 thou/uL, Range (130-400), Mean Platelet Volume 10.4 fL, Range (7.4-10.4), %Neutrophils 66.7 %, Range (42.0-75.0), *%Lymphocytes 19.5 - L %, Range (21.0-51.0), %Monocytes 7.0 %, Range (0.0-10.0), %Eosinophils 5.9 %, Range (0.0-10.0), %Basophils 0.9 %, Range (0.0-1.0), #Neutrophils 5.9 thou/uL, Range (1.40-6.50), #Lymphocytes 1.7 thou/uL, Range (1.20-3.40), *#Monocytes 0.6 - H thou/uL, Range (0.11-0.59), #Eosinphils 0.5 thou/uL, Range (0.0-0.7), #Basophils 0.1 thou/uL, Range (0.0-0.2). (MonApr 26, 2016 08:34 MPUR) CBC with Differential Collection DT: MonApr 26, 2016 12:29, White Blood Cell (WBC) Count 9.1 thou/uL, Range (4.8-10.8), Red Blood Cell (RBC) Count 5.11 mill/uL, Range (4.70-6.10), Hemoglobin 15.9 g/dL, Range (14.0-18.0), Hematocrit 46.1 %, Range (42.0-52.0), Mean Corpuscular Volume 90.4 fl, Range (80.0-94.0), *Mean Corpuscular Hemoglobin 31.1 - H pg, Range (27.0-31.0), Mean Corpuscular HGB CONC 34.5 g/dL, Range (32.0-36.0), *RBC Distribution Width 10.4 - L %, Range (11.5-14.5), Platelet Count 146 thou/uL, Range (130-400), Mean Platelet Volume 10.0 fL, Range (7.4-10.4), %Neutrophils 67.8 %, Range (42.0-75.0), *%Lymphocytes 18.5 - L %, Range (21.0-51.0), %Monocytes 7.4 %, Range (0.0-10.0), %Eosinophils 5.4 %, Range (0.0-10.0), %Basophils 0.8 %, Range (0.0-1.0), &a-1R&a+25V*p+0X*u9798Y*c202B*c15G*c2P*p-0X&a-25V&a+1R Name: Benji Burton : 1955 M60 MedRec: [id number] AcctNum: [id number] Prepared: MonApr 26, 2016 16:15 by Interface Page 16 of 17 pMD [facility] EMERGENCY RECORD #Neutrophils 6.2 thou/uL, Range (1.40-6.50), #Lymphocytes 1.7 thou/uL, Range (1.20-3.40), *#Monocytes 0.7 - H thou/uL, Range (0.11-0.59), #Eosinphils 0.5 thou/uL, Range (0.0-0.7), #Basophils 0.1 thou/uL, Range (0.0-0.2). (MonApr 26, 2016 12:38 MPUR) Neves: RIKKI=MD Dustin, Nguyễn BARBER=BENNY Moreno, Reji BRIGGS=BENNY Masterson, Bridgette CARMONA=BENNY Hdez, Kay MATHEWS=Johana Dunaway MPHYUN=MD Ceferino, Ranjan PRIDE=BENNY Aviles, Octavia GLOVER=RYLAN Tejada Stacey &a-1R&a+25V*p+0X*k4877M*c202B*c15G*c2P*p-0X&a-25V&a+1R Name: Benji Burton : 1955 M60 MedRec: [id number] AcctNum: [id number] Prepared: MonApr 26, 2016 16:15 by Interface Page 17 of 17 pMD MTDD
== END 2016-04-26 14:22 | disposition home or self-care (01) ==
LOC: NAV ERS 20:38
DX: K92.0 Hematemesis (principal); I10 Essential (primary) hypertension; E11.9 Type 2 diabetes mellitus without complications; Z87.891 Personal history of nicotine dependence; Z79.899 Other long term (current) drug therapy; Z87.442 Personal history of urinary calculi
CPT/HCPCS: 36415; 71010; 80053; 82271; 85025; 85610; 85730; 93005; C9113; J2060; J2720; J3010

== ENCOUNTER 2016-04-30 21:02 | Emergency (ER) | payer BC ==
[2016-04-30] MEDS ORDERED: Insulin Regular 300 UNITS/3 ML VIAL ONE (21:23)
[2016-04-30] MEDS ORDERED: Sodium Chloride 0.9% 1,000 ML ONE ×2 (21:23→22:32)
[2016-04-30 21:26] LABS: #Basophils 0.1 thou/uL (0.0-0.2); #Eosinphils 0.5 thou/uL (0.0-0.7); #Lymphocytes 1.6 thou/uL (1.20-3.40); #Monocytes 0.4 thou/uL (0.11-0.59); #Neutrophils 3.2 thou/uL (1.40-6.50); %Basophils 1.4 % (0.0-1.0); %Eosinophils 9.1 % (0.0-10.0); %Lymphocytes 27.5 % (21.0-51.0); %Monocytes 7.4 % (0.0-10.0); Hematocrit 48.8 % (42.0-52.0); Mean Platelet Volume 9.7 fL (7.4-10.4); Red Blood Cell (RBC) Count 5.23 mill/uL (4.70-6.10); White Blood Cell (WBC) Count 5.9 thou/uL (4.8-10.8)
[2016-04-30 21:29] LABS: Bilirubin Negative (Negative); Blood, Urine Negative (Negative); Glucose, Urine (Dipstick) 500 mg/dL (Negative); Ketone, Urine Negative (Negative); Nitrite Negative (Negative); Protein, Urine (Dipstick) Negative (Neg-Trace); Urobilinogen 0.2 mg/dL (0.2-1.0)
[2016-04-30 21:32] LABS: Bacteria/HPF None Seen HPF (None Seen); RBC/HPF None Seen HPF (0-3); Squamous Epithelial 0-3 HPF (0-3); WBC/HPF None Seen HPF (0-3)
[2016-04-30 21:43] LABS: Anion Gap 15 mmol/L (10-20); BUN (Urea Nitrogen) 16 mg/dL (8.4-25.7); Calc. Creatinine Clearance 0 mL/min (70-130); Calcium 9.5 mg/dL (7.8-10.44); Carbon Dioxide 21 mmol/L (22-29); Chloride 99 mmol/L (98-107); Estimated GFR-MDRD 45; Phosphorus 3.7 mg/dL (2.3-4.7)
--- NOTE | 2016-04-30 23:59 | PICIS ---
[facility] EMERGENCY RECORD TRIAGE (Sat Apr 30, 2016 21:09 JPAR) TRIAGE NOTES: Pt c/o elevated blood sugar. No distress noted. (Sat Apr 30, 2016 21:09 JPAR) PATIENT: NAME: Benji Burton, AGE: 60, GENDER: male, : Mon1955, TIME OF GREET: Sat Apr 30, 2016 21:02, PREFERRED LANGUAGE: Finnish, ETHNICITY: Not or , ECODE BILLING MAP: [facility], SSN: [id number], Zip Code: [address], KG WEIGHT: 86.18, PHONE: , , , PERSON ID: [id number], PCP: Kasey ALMONTE POLLACHI. (Sat Apr 30, 2016 21:09 JPAR) COMPLAINT: BLOOD SUGAR TOO HIGH. (Sat Apr 30, 2016 21:09 JPAR) ADMISSION: URGENCY: 3 Urgent, ADMISSION SOURCE: Home, TRANSPORT: Walk-in, BED: ER -02. (Sat Apr 30, 2016 21:09 JPAR) ASSESSMENT: Assessment: receiving readings of "hi" on home glucose monitor. (21:12 MBOS) IMMUNIZATIONS: Flu vaccine not up to date, Tetanus not up to date, Pneumococcal vaccine not up to date. (21:12 MBOS) SIRS SCORING: Heart Rate 55-109 (0), Temp range 96.8-101.1 (0), respiratory rate 12-24 (0). (21:12 MBOS) PROVIDERS: TRIAGE NURSE: Laurence Montana RN. (Sat Apr 30, 2016 21:09 JPAR) VITAL SIGNS: BP 171/80, Pulse 68, Resp 18, (Non-Labored), Temp 98.0, (Oral), Pain 0, O2 Sat 98, on Room Air, Time 04/30/2016 21:07. (21:07 JPAR) PREVIOUS VISIT ALLERGIES: No Known Drug Allergies. (Sat Apr 30, 2016 21:09 JPAR) No Known Drug Allergies. (21:12 MBOS) KNOWN ALLERGIES No Known Drug Allergies CURRENT MEDICATIONS (21:35 MBOS) lisinopril: TABLET : Strength - 10 mg : ORAL Patient Dose: 1 tab(s) Oral 2 times a day. Protonix: TABLET, DELAYED RELEASE (ENTERIC COATED) : Strength - 40 mg : ORAL Patient Dose: 1 tab(s) Oral See Notes.BID for 6 days, then QHS. VITAL SIGNS VITAL SIGNS: BP: 171/80, Pulse: 68, Resp: 18 (Non-Labored), Temp: 98.0 (Oral), Pain: 0, O2 sat: 98 on Room Air, Time: 04/30/2016 21:07. (21:07 JPAR) BP: 133/74, Pulse: 60, Resp: 20, Pain: 0, O2 sat: 98 on Room Air, Time: 04/30/2016 22:55. (22:55 MBOS) NURSING ASSESSMENT: FALL RISK (21:41 MBOS) FALL RISK: Fall risk assessment findings include: no history of &a-1R&a+25V*p+0X*a0077M*c202B*c15G*c2P*p-0X&a-25V&a+1R Name: Micheal Benji Palumbo : 1955 M60 MedRec: [id number] AcctNum: [id number] Prepared: Daisy May 01, 2016 06:43 by Interface Page 1 of 11 pMD [facility] EMERGENCY RECORD falls (0), No bed rest greater than 2 days (0), No use of level of consciousness altering agents with mentation or cognitive changes (0), No change in blood pressure (0), No sensory deficits (0), No impaired mobility (0), No neurologic diagnosis (0), No elimination problems (0), No confusion (0), Total score 0, No risk for fall. HENDRICH II FALL RISK: Hendrich II Fall Risk assessment findings include patient not confused, disoriented or impulsive, not symptomatic or depressed, no altered elimination, no dizziness or vertigo, male(1), no antiepileptics (anticonvulsants) administered, no Benzodiazepines administered, Total score 1, Score less than 5. Patient not high risk for falls. NURSING ASSESSMENT: HEAD-TO-TOE (21:19 MBOS) CONSTITUTIONAL: Patient arrives ambulatory, Gait steady, History obtained from patient, Patient appears comfortable, Patient cooperative, Patient alert, Oriented to person, place and time, Skin warm, Skin dry, Skin normal in color, Mucous membranes pink, Mucous membranes moist, Patient is well-groomed, Patient complains of hyperglycemia, patient checked his blood sugar level at home and received readings of "hi" three times in a row. PAIN: Patient rates pain as 0 out of 10. SKIN: Skin assessment findings include skin warm, Skin dry, Skin normal in color. NEURO: Pupils equally round and reactive to light, Able to close eyes, Face symmetrical, Speech normal. EYES: Eye assessment findings include orbits normal, Eye lids normal, Conjunctiva normal, Sclera normal, Cornea clear, Iris normal, Pupils equally round and reactive to light. ENT: Ear assessment findings include ear normal to inspection, Nasal assessment findings include nose normal to inspection, Sinuses normal, Nasal mucosa normal, Mouth and throat assessment findings include mouth inspection normal. RESPIRATORY/CHEST: Breath sounds clear, Respiratory assessment findings include respiratory effort easy, Respirations regular, Conversing normally, Neck and chest exam findings include trachea midline, Chest expansion equal, Chest movement symmetrical. CARDIOVASCULAR: Cardiovascular assessment findings include heart rate normal, Heart sounds normal. ABDOMEN: Abdomen assessment findings include abdomen symmetrical, Abdomen soft, Bowel sound normal. GENITOURINARY MALE: Associated with urinary complaints described as, frequency. PSYCH/SOCIAL: Psychiatric/social assessment findings include affect normal. SAFETY: Side rails up, Cart/Stretcher in lowest position, Family at bedside, Call light within reach, Hospital ID band on. NURSING ASSESSMENT: SKIN (21:40 MBOS) SKIN: Skin assessment findings include skin warm, Skin dry, Skin &a-1R&a+25V*p+0X*c0767X*c202B*c15G*c2P*p-0X&a-25V&a+1R Name: Benji Burton : 1955 M60 MedRec: [id number] AcctNum: [id number] Prepared: Daisy May 01, 2016 06:43 by Interface Page 2 of 11 pMD [facility] EMERGENCY RECORD normal in color, Inspection findings include: No pressure ulcer to the shoulder, Inspection findings include no pressure ulcer to the elbow, Inspection findings include no pressure ulcers to the hip, Inspection findings include no pressure ulcer to the sacrum, Inspection findings include no pressure ulcer to the heel, Inspection findings include no pressure ulcer, Inspection findings include no pressure ulcer, Inspection findings include rash, red, to generalized, red, eczema-like rash to multiple areas. SAFETY: Side rails up, Cart/Stretcher in lowest position, Family at bedside, Call light within reach, Hospital ID band on. NURSING PROCEDURE: BEDSIDE SIRS TESTING (21:43 MBOS) SCORES: Heart Rate 55-109 (0), Temp range 96.8-101.1 (0), respiratory rate 12-24 (0), Latest WBC 3-14.9 (0), Mental Status altered: no (0), Infection or Suspected Infection: No. NURSING PROCEDURE: BEDSIDE TESTING PATIENT IDENTIFIER: Patient actively involved in identification process, Patient's identity verified by patient stating name, Patient's identity verified by patient stating date, Patient's identity verified by hospital ID bracelet. (21:15 MBOS) Patient actively involved in identification process, Patient's identity verified by patient stating name, Patient's identity verified by patient stating date, Patient's identity verified by hospital ID bracelet. (22:30 MBOS) Patient actively involved in identification process, Patient's identity verified by patient stating name, Patient's identity verified by patient stating date, Patient's identity verified by hospital ID bracelet. (23:42 MBOS) GLUCOSE: Glucose testing indicated for diabetic patient, Glucose testing indicated for hyperglycemia, Capillary blood sample, Result (mg/dl) "hi", Notes: Initial result read "hi." Repeated test and glucose monitor registered an error. MD notified. (21:15 MBOS) Glucose testing indicated for diabetic patient, Glucose testing indicated for hyperglycemia, Capillary blood sample, Result (mg/dl) 436. (22:30 MBOS) Glucose testing indicated for diabetic patient, Glucose testing indicated for hyperglycemia, Capillary blood sample, Result (mg/dl) 298. (23:42 MBOS) SAFETY: Side rails up, Cart/Stretcher in lowest position, Family at bedside, Call light within reach, Hospital ID band on. (21:15 MBOS) Side rails up, Cart/Stretcher in lowest position, Family at bedside, Call light within reach, Hospital ID band on. (22:30 MBOS) Side rails up, Cart/Stretcher in lowest position, Family at bedside, Call light within reach, Hospital ID band on. (23:42 MBOS) NURSING PROCEDURE: DISCHARGE NOTE (23:53 MBOS) DISCHARGE: Patient discharged to home, ambulating without &a-1R&a+25V*p+0X*x6550F*c202B*c15G*c2P*p-0X&a-25V&a+1R Name: Benji Burton : 1955 M60 MedRec: [id number] AcctNum: [id number] Prepared: Daisy May 01, 2016 06:43 by Interface Page 3 of 11 pMD [facility] EMERGENCY RECORD assistance, family driving, accompanied by //partner, Summary of Care printed/ provided, Discharge instructions given to patient, Simple or moderate discharge teaching performed, Prescriptions given and instructions on side effects given, Above person(s) verbalized understanding of discharge instructions and follow-up care, Patient treated and evaluated by physician. NURSING PROCEDURE: IV PATIENT IDENITIFIER: Patient actively involved in identification process, Patient's identity verified by patient stating name, Patient's identity verified by hospital ID bracelet. (21:20 BHAS) IV SITE 1: IV established, to the right antecubital, using a 20 gauge catheter, in one attempt, Saline lock established, Flushed with normal saline (mls): 10, Labs drawn at time of placement, labeled in the presence of the patient and sent to lab. (21:20 BHAS) FOLLOW-UP SITE 1: After procedure, sterile dressing applied. (21:20 BHAS) IV discontinued, due to patient being discharged, catheter intact. (23:53 MBOS) SAFETY: Side rails up, Cart/Stretcher in lowest position, Family at bedside, Call light within reach, Hospital ID band on. (21:20 BHAS) Side rails up, Cart/Stretcher in lowest position, Family at bedside, Call light within reach, Hospital ID band on. (23:53 MBOS) ORDER DETAILS Order Name: Basic Metabolic Panel, Status: Active, Time: 21:16 04/30/2016, User: RWJESUS, - Ordered for: MD Verduzco Richard, - Entered by: MD Verduzco Richard - Sat Apr 30, 2016 21:16, - Quantity: 1, Order Name: Beta-Hydroxybutyrate (Ketone), Status: Active, Time: 21:16 04/30/2016, User: KELLEY, - Ordered for: MD Verduzco Richard, - Entered by: MD Verduzco Richard - Sat Apr 30, 2016 21:16, - Quantity: 1, Order Name: BLOOD GLUCOSE MONITOR, Status: Done, Time: 21:16 04/30/2016, User: MAN, - Ordered for: MD Verduzco Richard, - Entered by: MD Verduzco Richard - Sat Apr 30, 2016 21:16, - Quantity: 1, Order Name: BLOOD GLUCOSE MONITOR, Status: Done, Time: 22:29 04/30/2016, User: MAN, - Ordered for: MD Verduzco Richard, - Entered by: MD Verduzco Richard - Sat Apr 30, 2016 22:10, - Quantity: 1, Order Name: CBC with Differential, Status: Active, Time: 21:16 04/30/2016, User: KELLEY, - Ordered for: MD Verduzco Richard, &a-1R&a+25V*p+0X*s1233X*c202B*c15G*c2P*p-0X&a-25V&a+1R Name: Benji Burton [place] : 1955 M60 MedRec: [id number] AcctNum: [id number] Prepared: Daisy May 01, 2016 06:43 by Interface Page 4 of 11 [facility] EMERGENCY RECORD - Entered by: MD Verduzco Richard - Gary Apr 30, 2016 21:16, - Quantity: 1, Order Name: Magnesium, Status: Active, Time: 21:16 04/30/2016, User: KELLEY, - Ordered for: MD Verduzco Richard, - Entered by: MD Verduzco Richard - Sat Apr 30, 2016 21:16, - Quantity: 1, Order Name: Miscellaneous Nurse Order(s), Status: Done, Time: 22:29 04/30/2016, User: MAN, - Ordered for: MD Verduzco Richard, - Entered by: MD Verduzco Richard - Sat Apr 30, 2016 22:10, - Quantity: 1, Order Name: Miscellaneous Nurse Order(s), Status: Done, Time: 22:43 04/30/2016, User: MAN, - Ordered for: MD Verduzco Richard - Entered by: MD Verduzco Richard - Sat Apr 30, 2016 22:39, - Quantity: 1, Order Name: Phosphorus, Status: Active, Time: 21:16 04/30/2016, User: KELLEY, - Ordered for: MD Verduzco Richard, - Entered by: MD Verduzco Richard - Sat Apr 30, 2016 21:16, - Quantity: 1, Order Name: SALINE LOCK, Status: Done, Time: 21:16 04/30/2016, User: MAN, - Ordered for: MD Verduzco Richard, - Entered by: MD Verduzco Richard - Sat Apr 30, 2016 21:16, - Quantity: 1, Order Name: Urinalysis with Microscopic, Status: Active, Time: 21:16 04/30/2016, User: KELLEY, - Ordered for: MD Verduzco Richard, - Entered by: MD Verduzco Richard - Sat Apr 30, 2016 21:16, - Quantity: 1. MEDICATION ADMINISTRATION SUMMARY Drug Name: Normal Saline, Dose Ordered: 1 L, Route: IV Fluid Infusion, Status: Given, Time: 22:36 04/30/2016, Drug Name: sodium chloride 0.9 % intravenous, Dose Ordered: 1 L, Route: IV Fluid Infusion, Status: Given, Time: 21:32 04/30/2016, Drug Name: NovoLIN R, Dose Ordered: 10 units, Route: IV Push, Status: Given, Time: 21:31 04/30/2016, Detailed record available in Medication Service section. MEDICATION SERVICE Normal Saline: Order: Normal Saline (0.9 % sodium chloride) - Dose: 1 L : IV Fluid Infusion Schedule: Now Ordered by: Elfego Verduzco MD Entered by: Elfego Verduzco MD Sat Apr 30, 2016 22:30 , Acknowledged by: Elva Torres, BENNY Sat Apr 30, 2016 22:32 &a-1R&a+25V*p+0X*v5821L*c202B*c15G*c2P*p-0X&a-25V&a+1R Name: Benji Burton : 1955 M60 MedRec: [id number] AcctNum: [id number] Prepared: Daisy May 01, 2016 06:43 by Interface Page 5 of 11 D [facility] EMERGENCY RECORD Documented as given by: Elva Torres RN Sat Apr 30, 2016 22:36 Patient, Medication, Dose, Route and Time verified prior to administration. IV SITE #1 IV fluids established for hydration, IV SITE #1 into right antecubital, IV SITE #1 2nd bag hung, amount 1 Liter hung, IV SITE #1 bolus of 1000 ml established, via primary tubing, via pump tubing, IV SITE #1 on IV pump, Awake and alert- acceptable, Catheter placement confirmed via flush prior to administration, IV site without signs or symptoms of infiltration during medication administration, No swelling during administration, No drainage during administration, IV flushed after administration, Correct patient, time, route, dose and medication confirmed prior to administration, Patient advised of actions and side-effects prior to administration, Allergies confirmed and medications reviewed prior to administration, Patient in position of comfort, Side rails up, Cart in lowest position, Family at bedside. : Follow Up : _IV SITE #1:_, IV fluid infusion discontinued, on Sat Apr 30, 2016 23:38, Total fluid hydration time IV site 1 1 hour, 5 minutes, ., Total amount infused: 1000ml, IV Line flushed after administration, Patient in position of comfort, Side rails up, Cart in lowest position, Family at bedside. (23:38 MBOS) NovoLIN R: Order: NovoLIN R (insulin regular, human) - Dose: 10 units : IV Push Schedule: Now Ordered by: Elfego Verduzco MD Entered by: Elfego Verduzco MD Sat Apr 30, 2016 21:17 , Acknowledged by: Elva Torres RN Sat Apr 30, 2016 21:23 Documented as given by: Elva Torres RN Sat Apr 30, 2016 21:31 Patient, Medication, Dose, Route and Time verified prior to administration. IV SITE #1 IVP, initial medication, Slowly, Awake and alert- acceptable, Catheter placement confirmed via flush prior to administration, IV site without signs or symptoms of infiltration during medication administration, No swelling during administration, No drainage during administration, IV flushed after administration, Correct patient, time, route, dose and medication confirmed prior to administration, Patient advised of actions and side-effects prior to administration, Allergies confirmed and medications reviewed prior to administration, Patient in position of comfort, Side rails up, Cart in lowest position, Family at bedside. sodium chloride 0.9 % intravenous: Order: sodium chloride 0.9 % intravenous (0.9 % sodium chloride) - Dose: 1 L : IV Fluid Infusion Schedule: Now Ordered by: Elfego Verduzco MD Entered by: Elfego Verduzco MD Sat Apr 30, 2016 21:17 , Acknowledged by: Elva Torres RN Sat Apr 30, 2016 21:23 Documented as given by: Elva Torres RN Sat Apr 30, 2016 21:32 Patient, Medication, Dose, Route and Time verified prior to administration. &a-1R&a+25V*p+0X*e6887N*c202B*c15G*c2P*p-0X&a-25V&a+1R Name: Benji Burton : 1955 M60 MedRec: [id number] AcctNum: [id number] Prepared: Daisy May 01, 2016 06:43 by Interface Page 6 of 11 pMD [facility] EMERGENCY RECORD IV SITE #1 IV fluids established for hydration, IV SITE #1 into right antecubital, IV SITE #1 1st bag hung, amount 1 Liter hung, IV SITE #1 bolus of 1000 ml established, via primary tubing, via pump tubing, IV SITE #1 on IV pump, Awake and alert- acceptable, Catheter placement confirmed via flush prior to administration, IV site without signs or symptoms of infiltration during medication administration, No swelling during administration, No drainage during administration, IV flushed after administration, Correct patient, time, route, dose and medication confirmed prior to administration, Patient advised of actions and side-effects prior to administration, Allergies confirmed and medications reviewed prior to administration, Patient in position of comfort, Side rails up, Cart in lowest position, Family at bedside. : Follow Up : _IV SITE #1:_, IV fluid infusion discontinued, on Sat Apr 30, 2016 22:32, Total fluid hydration time IV site 1 1 hour, ., Total amount infused: 1000ml, IV Line flushed after administration, Patient in position of comfort, Side rails up, Cart in lowest position, Family at bedside. (22:37 MBOS) HPI DIABETES (21:18 RWAG) CHIEF COMPLAINT: Patient presents for evaluation of hyperglycemia, Patient presents for evaluation of "finger stick reads "high" labs pnd. HISTORIAN: History provided by patient, last week had EGD/Balloon dilatation of esophageal stenosis. denies pain, fever, or dysphagia. LOCATION: No localizing symptoms. QUALITY: Described as similar to previous episodes. SEVERITY: Maximum severity of symptoms mild, Currently symptoms are mild. TIME COURSE: Patient unable to describe onset of symptoms, There has been no change in the patient's symptoms over time. ASSOCIATED WITH: No associated symptoms. EXACERBATED BY: Patient's condition exacerbated by nothing. RELIEVED BY: Patient's condition relieved by nothing. ROS (21:24 RWAG) CONSTITUTIONAL: Negative constitutional review of systems. EYES: Negative eye review of systems. ENT: Negative ears, nose, throat review of systems. CARDIOVASCULAR: Negative cardiovascular review of systems. RESPIRATORY: Negative respiratory review of systems. GI: Negative gastrointestinal review of systems. GENITOURINARY MALE: Negative genitourinary review of systems. MUSCULOSKELETAL: Negative musculoskeletal review of systems. SKIN: Negative skin review of systems. NEUROLOGIC: Negative neurologic review of systems. ENDOCRINE: Negative endocrine review of systems. HEMO/LYMPHATIC: Normal hematologic/lymphatic system review. ALLERGIC/IMMUNOLOGIC: Normal allergy/immunologic system review. PSYCHIATRIC: Negative psychiatric review of systems. &a-1R&a+25V*p+0X*p1734K*c202B*c15G*c2P*p-0X&a-25V&a+1R Name: Benji Burton : 1955 M60 MedRec: [id number] AcctNum: [id number] Prepared: Daisy May 01, 2016 06:43 by Interface Page 7 of 11 pMD [facility] EMERGENCY RECORD NOTES: All systems reviewed, negative except as described above. PAST MEDICAL HISTORY (21:12 MBOS) MEDICAL HISTORY: Notes: HERNIA, Flu vaccine not up to date, Tetanus not up to date, Pneumococcal vaccine not up to date, Past medical history includes history of hypertension. Flu vaccine not up to date, Tetanus not up to date, Pneumococcal vaccine not up to date, Past medical history includes history of diabetes, Type II. MALE SURGICAL HISTORY: MASS REMOVED FROM SHOULDER (15 YEARS AGO), Surgical history of hernia repair, las kidney stone was over 1 year ago; hx of lithotripsy many yrs ago. PSYCHIATRIC HISTORY: No previous psychiatric history. SOCIAL HISTORY: Patient is a former tobacco user, smoked cigarettes, Patient quit smoking more than 10 years ago. PHYSICAL EXAM (21:25 RWAG) CONSTITUTIONAL: Vital Signs Reviewed, Blood pressure, hypertensive. HEAD: Head exam normal. EYES: Eye exam normal. ENT: ENT exam normal. NECK: Neck exam normal. RESPIRATORY CHEST: Respiratory and chest exam normal. CARDIOVASCULAR: Cardiovascular assessment normal. ABDOMEN MALE: Abdominal exam normal. BACK: Back exam normal. UPPER EXTREMITY: Upper extremity exam normal. LOWER EXTREMITY: Lower extremity exam normal. NEURO: Neuro exam normal, [place] coma scale 15, Neuro exam findings include patient oriented to person, place and time, Speech normal, Gait normal, Memory normal, Cranial nerves intact, Deep tendon reflexes normal. SKIN: Skin exam normal. LYMPHATIC: Lymphatic exam normal. PSYCHIATRIC: Psychiatric exam normal. EVENTS TRANSFER: Triage to Emergency Emergency Room -02. (Sat Apr 30, 2016 21:09 JPAR) Removed from Emergency Emergency Room -02. (23:56 MBOS) PROBLEM LIST No recorded problems DIAGNOSIS (23:45 RWAG) FINAL: PRIMARY: TYPE 2 DM W/HYPERGLYCEMIA. DISPOSITION PATIENT: Disposition Type: Discharge, Disposition: *Discharge Home, Disposition Transport: Car, Condition: Improved. (23:45 RWAG) &a-1R&a+25V*p+0X*b5923Q*c202B*c15G*c2P*p-0X&a-25V&a+1R Name: Benji Burton : 1955 M60 MedRec: [id number] AcctNum: [id number] Prepared: Daisy May 01, 2016 06:43 by Interface Page 8 of 11 pMD [facility] EMERGENCY RECORD Patient left the department. (23:56 MBOS) INSTRUCTION (23:48 RWAG) DISCHARGE: HYPERGLYCEMIA DIABETIC. FOLLOWUP: Kasey ALMONTE, GAYLA, Internal Medicine, [address] [place] [id number], [phone], Follow up with Primary Care Physician in 1-2 days. SPECIAL: Follow-up with your PCP. PRESCRIPTION (23:44 RWAG) Glucophage: TABLET : 1,000 mg : ORAL : Quantity: 1 Unit: tab(s) Route: ORAL Schedule: once a day (in the morning) Dispense: 15 Unit: tab(s) May substitute. Refills: No Refills . NOTES: No Refills. IMAGING (23:56 MBOS) *DISCHARGE INSTRUCTIONS RECEIPT: Image captured from scanner. *SUPPLY CHARGE SHEET: Image captured from scanner. ADMIN (Rowe May 01, 2016 06:32 RW) DIGITAL SIGNATURE: MD Dax, Elfego. RESULTS LABORATORY: CBC with Differential Collection DT: [facility] Apr 30, 2016 21:24, White Blood Cell (WBC) Count 5.9 thou/uL, Range (4.8-10.8), Red Blood Cell (RBC) Count 5.23 mill/uL, Range (4.70-6.10), Hemoglobin 16.3 g/dL, Range (14.0-18.0), Hematocrit 48.8 %, Range (42.0-52.0), Mean Corpuscular Volume 93.3 fl, Range (80.0-94.0), *Mean Corpuscular Hemoglobin 31.1 - H pg, Range (27.0-31.0), Mean Corpuscular HGB CONC 33.3 g/dL, Range (32.0-36.0), *RBC Distribution Width 10.7 - L %, Range (11.5-14.5), Platelet Count 186 thou/uL, Range (130-400), Mean Platelet Volume 9.7 fL, Range (7.4-10.4), %Neutrophils 54.7 %, Range (42.0-75.0), %Lymphocytes 27.5 %, Range (21.0-51.0), %Monocytes 7.4 %, Range (0.0-10.0), %Eosinophils 9.1 %, Range (0.0-10.0), *%Basophils 1.4 - H %, Range (0.0-1.0), #Neutrophils 3.2 thou/uL, Range (1.40-6.50), #Lymphocytes 1.6 thou/uL, Range (1.20-3.40), #Monocytes 0.4 thou/uL, Range (0.11-0.59), #Eosinphils 0.5 thou/uL, Range (0.0-0.7), #Basophils 0.1 thou/uL, Range (0.0-0.2). (21:30 RW) Urinalysis with Microscopic Collection DT: [facility] Apr 30, 2016 21:24, Color Yellow , Range (Yellow), Clarity Clear , Range (Clear), Specific [place], Urine 1.031 , Range (1.002-1.036), &a-1R&a+25V*p+0X*b9957E*c202B*c15G*c2P*p-0X&a-25V&a+1R Name: Benji Burton : 1955 M60 MedRec: [id number] AcctNum: [id number] Prepared: Daisy May 01, 2016 06:43 by Interface Page 9 of 11 pMD [facility] EMERGENCY RECORD pH, Urine 5.0 , Range (5.0-9.0), Leukocyte Negative , Range (Negative), Nitrite Negative , Range (Negative), Protein, Urine (Dipstick) Negative mg/dL, Range (Neg-Trace), *Glucose, Urine (Dipstick) 500 - H mg/dL, Range (Negative), Ketone, Urine Negative mg/dL, Range (Negative), Urobilinogen 0.2 mg/dL, Range (0.2-1.0), Bilirubin Negative , Range (Negative), Blood, Urine Negative , Range (Negative), RBC/HPF None Seen HPF, Range (0-3), WBC/HPF None Seen HPF, Range (0-3), Squamous Epithelial 0-3 HPF, Range (0-3), Bacteria/HPF None Seen HPF, Range (None Seen). (21:38 RWAG) Magnesium Collection DT: [facility] Apr 30, 2016 21:24, Magnesium 2.0 mg/dL, Range (1.6-2.6). (21:48 RWAG) Phosphorus Collection DT: [facility] Apr 30, 2016 21:24, Phosphorus 3.7 mg/dL, Range (2.3-4.7). (21:48 RWAG) Basic Metabolic Panel Collection DT: [facility] Apr 30, 2016 21:24, *Sodium 131 - L mmol/L, Range (136-145), Potassium 4.4 mmol/L, Range (3.5-5.1), Chloride 99 mmol/L, Range (98-107), *Carbon Dioxide 21 - L mmol/L, Range (22-29), Anion Gap 15 mmol/L, Range (10-20), BUN (Urea Nitrogen) 16 mg/dL, Range (8.4-25.7), *Creatinine 1.58 - H mg/dL, Range (0.7-1.3), Estimated GFR-MDRD 46 , Reference Range for Estimated GFR: Greater than 90, mL/min/1.73 m2 NOTE: The MDRD equation has not been validated for use, with the elderly (over 70 years of age), women, patients with, serious comorbid condition or persons with extremes of body size, muscle, mass, or nutritional status. , Calcium 9.5 mg/dL, Range (7.8-10.44). (21:48 RW) Beta-Hydroxybutyrate (Ketone) Collection DT: Sat Apr 30, 2016 21:24, Beta-Hydroxybutyrate (Ketone) 0.06 mmol/L, Range (0.02-0.27). (21:48 RWAG) Magnesium Collection DT: Sat Apr 30, 2016 21:24, Magnesium 2.0 mg/dL, Range (1.6-2.6). (22:07 RWAG) Phosphorus Collection DT: Sat Apr 30, 2016 21:24, Phosphorus 3.7 mg/dL, Range (2.3-4.7). (22:07 RWAG) Basic Metabolic Panel Collection DT: Sat Apr 30, 2016 21:24, Critical Call Chemistry CALLED MAV.MEB AT , 2200 , Refer to Critical Value designated by an *L or *H , *Sodium 131 - L mmol/L, Range (136-145), Potassium 4.4 mmol/L, Range (3.5-5.1), Chloride 99 mmol/L, Range (98-107), *Carbon Dioxide 21 - L mmol/L, Range (22-29), Anion Gap 15 mmol/L, Range (10-20), BUN (Urea Nitrogen) 16 mg/dL, Range (8.4-25.7), &a-1R&a+25V*p+0X*m6670O*c202B*c15G*c2P*p-0X&a-25V&a+1R Name: Benji Burton : 1955 [facility] [place]Rec: [id number] AcctNum: [id number] Prepared: Daisy May 01, 2016 06:43 by Interface Page 10 of 11 pMD [facility] EMERGENCY RECORD *Creatinine 1.58 - H mg/dL, Range (0.7-1.3), Estimated GFR-MDRD 45 , Reference Range for Estimated GFR: Greater than 90, mL/min/1.73 m2 NOTE: The MDRD equation has not been validated for use, with the elderly (over 70 years of age), women, patients with, serious comorbid condition or persons with extremes of body size, muscle, mass, or nutritional status. , *Glucose 687 - *H mg/dL, Range (70-105), Critical value!, Calcium 9.5 mg/dL, Range (7.8-10.44). (22:07 RW) Neves: IVAN=BENNY Montana, Laurence BARBER=BENNY Moreno, Reji MBELOINA=BENNY Torres, Elva RWAG=MD Dax, Elfego &a-1R&a+25V*p+0X*z0581A*c202B*c15G*c2P*p-0X&a-25V&a+1R Name: Benji Burton : 1955 10 MedRec: [id number] AcctNum: [id number] Prepared: Daisy May 01, 2016 06:43 by Interface Page 11 of 11 pMD MTDD
--- NOTE | 2016-04-30 23:59 | ERRECORD ---
[facility] EMERGENCY RECORD HPI DIABETES (21:18 RWAG) CHIEF COMPLAINT: Patient presents for evaluation of hyperglycemia, Patient presents for evaluation of "finger stick reads "high" labs pnd. HISTORIAN: History provided by patient, last week had EGD/Balloon dilatation of esophageal stenosis. denies pain, fever, or dysphagia. LOCATION: No localizing symptoms. QUALITY: Described as similar to previous episodes. SEVERITY: Maximum severity of symptoms mild, Currently symptoms are mild. TIME COURSE: Patient unable to describe onset of symptoms, There has been no change in the patient's symptoms over time. ASSOCIATED WITH: No associated symptoms. EXACERBATED BY: Patient's condition exacerbated by nothing. RELIEVED BY: Patient's condition relieved by nothing. ROS (21:24 RWAG) CONSTITUTIONAL: Negative constitutional review of systems. EYES: Negative eye review of systems. ENT: Negative ears, nose, throat review of systems. CARDIOVASCULAR: Negative cardiovascular review of systems. RESPIRATORY: Negative respiratory review of systems. GI: Negative gastrointestinal review of systems. GENITOURINARY MALE: Negative genitourinary review of systems. MUSCULOSKELETAL: Negative musculoskeletal review of systems. SKIN: Negative skin review of systems. NEUROLOGIC: Negative neurologic review of systems. ENDOCRINE: Negative endocrine review of systems. HEMO/LYMPHATIC: Normal hematologic/lymphatic system review. ALLERGIC/IMMUNOLOGIC: Normal allergy/immunologic system review. PSYCHIATRIC: Negative psychiatric review of systems. NOTES: All systems reviewed, negative except as described above. PAST MEDICAL HISTORY (21:12 MBOS) MEDICAL HISTORY: Notes: HERNIA, Flu vaccine not up to date, Tetanus not up to date, Pneumococcal vaccine not up to date, Past medical history includes history of hypertension. Flu vaccine not up to date, Tetanus not up to date, Pneumococcal vaccine not up to date, Past medical history includes history of diabetes, Type II. MALE SURGICAL HISTORY: MASS REMOVED FROM SHOULDER (15 YEARS AGO), Surgical history of hernia repair, las kidney stone was over 1 year ago; hx of lithotripsy many yrs ago. PSYCHIATRIC HISTORY: No previous psychiatric history. SOCIAL HISTORY: Patient is a former tobacco user, smoked cigarettes, Patient quit smoking more than 10 years ago. KNOWN ALLERGIES No Known Drug Allergies CURRENT MEDICATIONS (21:35 MBOS) &a-1R&a+25V*p+0X*z5084A*c202B*c15G*c2P*p-0X&a-25V&a+1R Name: Benji Burton : 1955 M60 MedRec: [id number] AcctNum: [id number] Prepared: Daisy May 01, 2016 06:37 by Interface Page 1 of 3 pMD [facility] EMERGENCY RECORD lisinopril: TABLET : Strength - 10 mg : ORAL Patient Dose: 1 tab(s) Oral 2 times a day. Protonix: TABLET, DELAYED RELEASE (ENTERIC COATED) : Strength - 40 mg : ORAL Patient Dose: 1 tab(s) Oral See Notes.BID for 6 days, then QHS. VITAL SIGNS VITAL SIGNS: BP: 171/80, Pulse: 68, Resp: 18 (Non-Labored), Temp: 98.0 (Oral), Pain: 0, O2 sat: 98 on Room Air, Time: 04/30/2016 21:07. (21:07 JPAR) BP: 133/74, Pulse: 60, Resp: 20, Pain: 0, O2 sat: 98 on Room Air, Time: 04/30/2016 22:55. (22:55 MBOS) PHYSICAL EXAM (21:25 RWAG) CONSTITUTIONAL: Vital Signs Reviewed, Blood pressure, hypertensive. HEAD: Head exam normal. EYES: Eye exam normal. ENT: ENT exam normal. NECK: Neck exam normal. RESPIRATORY CHEST: Respiratory and chest exam normal. CARDIOVASCULAR: Cardiovascular assessment normal. ABDOMEN MALE: Abdominal exam normal. BACK: Back exam normal. UPPER EXTREMITY: Upper extremity exam normal. LOWER EXTREMITY: Lower extremity exam normal. NEURO: Neuro exam normal, Jeimy coma scale 15, Neuro exam findings include patient oriented to person, place and time, Speech normal, Gait normal, Memory normal, Cranial nerves intact, Deep tendon reflexes normal. SKIN: Skin exam normal. LYMPHATIC: Lymphatic exam normal. PSYCHIATRIC: Psychiatric exam normal. MEDICATION ADMINISTRATION SUMMARY Drug Name: Normal Saline, Dose Ordered: 1 L, Route: IV Fluid Infusion, Status: Given, Time: 22:36 04/30/2016, Drug Name: sodium chloride 0.9 % intravenous, Dose Ordered: 1 L, Route: IV Fluid Infusion, Status: Given, Time: 21:32 04/30/2016, Drug Name: NovoLIN R, Dose Ordered: 10 units, Route: IV Push, Status: Given, Time: 21:31 04/30/2016, Detailed record available in Medication Service section. PROBLEM LIST No recorded problems DIAGNOSIS (23:45 RWAG) &a-1R&a+25V*p+0X*e8449D*c202B*c15G*c2P*p-0X&a-25V&a+1R Name: Benji Burton : 1955 M60 MedRec: [id number] AcctNum: [id number] Prepared: Daisy May 01, 2016 06:37 by Interface Page 2 of 3 pMD [facility] EMERGENCY RECORD FINAL: PRIMARY: TYPE 2 DM W/HYPERGLYCEMIA. PRESCRIPTION (23:44 RWAG) Glucophage: TABLET : 1,000 mg : ORAL : Quantity: 1 Unit: tab(s) Route: ORAL Schedule: once a day (in the morning) Dispense: 15 Unit: tab(s) May substitute. Refills: No Refills . NOTES: No Refills. DISPOSITION PATIENT: Disposition Type: Discharge, Disposition: *Discharge Home, Disposition Transport: Car, Condition: Improved. (23:45 RWAG) Patient left the department. (23:56 MBOS) Neves: ELISABETH=BENNY Moreno, Reji MBOS=BENNY Torres Marie RWAG=MD Dax, Elfego &a-1R&a+25V*p+0X*x3015N*c202B*c15G*c2P*p-0X&a-25V&a+1R Name: Benji Burton : 1955 M60 MedRec: [id number] AcctNum: [id number] Prepared: Daisy May 01, 2016 06:37 by Interface Page 3 of 3 pMD MTDD
== END 2016-04-30 23:50 | disposition home or self-care (01) ==
LOC: NAV ERS 21:02
DX: E11.65 Type 2 diabetes mellitus with hyperglycemia (principal); I10 Essential (primary) hypertension; Z87.891 Personal history of nicotine dependence; Z87.442 Personal history of urinary calculi; Z79.899 Other long term (current) drug therapy
CPT/HCPCS: 36415; 36416; 80048; 81001; 82010; 83735; 84100; 85025; 96361; 96374; J1815; J7050

== ENCOUNTER 2016-05-01 11:40 | Emergency (ER) | payer BC ==
[2016-05-01 12:31] LABS: #Basophils 0.1 thou/uL (0.0-0.2); #Eosinphils 0.5 thou/uL (0.0-0.7); #Lymphocytes 1.4 thou/uL (1.20-3.40); #Monocytes 0.4 thou/uL (0.11-0.59); #Neutrophils 3.5 thou/uL (1.40-6.50); %Basophils 1.8 % (0.0-1.0); %Lymphocytes 23.9 % (21.0-51.0); Hematocrit 46.2 % (42.0-52.0); Red Blood Cell (RBC) Count 5.03 mill/uL (4.70-6.10)
[2016-05-01 12:37] LABS: Bilirubin Negative (Negative); Blood, Urine Trace (Negative); Glucose, Urine (Dipstick) 500 mg/dL (Negative); Ketone, Urine Negative (Negative); Nitrite Negative (Negative); Protein, Urine (Dipstick) Negative (Neg-Trace); Urobilinogen 0.2 mg/dL (0.2-1.0)
[2016-05-01 12:38] LABS: RBC/HPF 0-3 HPF (0-3); Squamous Epithelial 0-3 HPF (0-3)
[2016-05-01] MEDS ORDERED: Insulin Regular 300 UNITS/3 ML VIAL ONE (12:41)
[2016-05-01 12:48] LABS: ALT (SGPT) 65 U/L (0-55); AST (SGOT) 35 U/L (5-34); Alkaline Phosphatase 66 U/L (40-150); Anion Gap 13 mmol/L (10-20); BUN (Urea Nitrogen) 14 mg/dL (8.4-25.7); Bilirubin, Total 0.5 mg/dL (0.2-1.2); Calc. Creatinine Clearance 0 mL/min (70-130); Calcium 9.3 mg/dL (7.8-10.44); Carbon Dioxide 21 mmol/L (22-29); Chloride 104 mmol/L (98-107); Estimated GFR-MDRD 57; Globulin 3.1 g/dL (2.4-3.5)
--- NOTE | 2016-05-01 14:03 | ERRECORD ---
[facility] EMERGENCY RECORD HPI DIABETES (14:11 JOHE) CHIEF COMPLAINT: Patient presents for evaluation of hyperglycemia, Pre-hospital or triage blood sugar greater than 400. HISTORIAN: History provided by patient, Pt. reports seen here yesterday for hyperglycemia > 600. Got 3 liters IVF, and 10 units insulin, then given metformin script, but has not yet started it. States FSG today was 600 again this am, so came back to ED. Reports polyuria/dipsia, but no other symptoms or complaints. No F&C, N&V, vision changes, CP, SOB or abd. pain. Reports long history of type 2 DM controlled by diet and exercise, but has had trouble since being treated for PUD recently. LOCATION: Symptoms are generalized. SEVERITY: Maximum severity of symptoms mild, Currently symptoms are mild. TIME COURSE: Gradual onset of symptoms, weeks ago, There has been no change in the patient's symptoms over time. ASSOCIATED WITH: Associated symptoms reviewed, No associated abdominal pain, No associated alcohol use, No associated history of chest pain, No associated decrease in oral intake, No associated diaphoresis, No associated dizziness, No associated fever, No associated illness, No associated injury, No associated loss of consciousness, Associated with polydipsia, No associated polyphagia, Associated with polyuria, No associated stress, No associated syncope, No associated upper respiratory infection, No associated vomiting, No associated weakness, Denies any other complaints. EXACERBATED BY: Patient's condition exacerbated by nothing. RELIEVED BY: Patient's condition relieved by nothing because patient has not tried anything for relief. ROS (14:14 JOHE) CONSTITUTIONAL: Historian denies chills, denies fatigue, denies fever, denies malaise. EYES: Historian denies eye pain, denies eye redness, denies vision changes. ENT: Historian denies otalgia, denies rhinorrhea, denies sore throat. CARDIOVASCULAR: Historian denies chest pain, denies edema, denies syncope, denies palpitations. RESPIRATORY: Historian denies cough, denies shortness of breath, denies wheezing. GI: Historian denies abdominal pain, denies diarrhea, denies nausea, denies vomiting. GENITOURINARY MALE: Historian denies dysuria, denies hematuria, reports urinary frequency, denies urinary urgency. MUSCULOSKELETAL: Historian denies back pain, denies neck pain. SKIN: Historian denies rash, denies skin changes. NEUROLOGIC: Historian denies dizziness, denies gait changes, denies headache, denies lethargy, denies mental status changes, denies paresthesias, denies seizures. ENDOCRINE: Historian denies cold intolerance, denies heat &a-1R&a+25V*p+0X*m9400S*c202B*c15G*c2P*p-0X&a-25V&a+1R Name: Benji Burton : 1955 M60 MedRec: [id number] AcctNum: [id number] Prepared: Daisy May 01, 2016 14:26 by Interface Page 1 of 4 pMD [facility] EMERGENCY RECORD intolerance, reports polydipsia, reports polyuria, denies skin changes. PSYCHIATRIC: Historian denies alcohol abuse, denies drug abuse. NOTES: All systems reviewed, negative except as described above. PAST MEDICAL HISTORY (11:45 [facility]) MEDICAL HISTORY: Notes: HERNIA, Past medical history includes history of hypertension. Past medical history includes history of diabetes, Type II. MALE SURGICAL HISTORY: MASS REMOVED FROM SHOULDER (15 YEARS AGO), Surgical history of hernia repair, las kidney stone was over 1 year ago; hx of lithotripsy many yrs ago. PSYCHIATRIC HISTORY: No previous psychiatric history. SOCIAL HISTORY: Patient denies alcohol use, Patient denies drug use, Patient is a former tobacco user, Patient is a former tobacco user, smoked cigarettes, Patient quit smoking more than 10 years ago. KNOWN ALLERGIES No Known Drug Allergies CURRENT MEDICATIONS lisinopril: TABLET : Strength - 10 mg : ORAL Patient Dose: 1 tab(s) Oral 2 times a day. (11:52 [facility]) Protonix: TABLET, DELAYED RELEASE (ENTERIC COATED) : Strength - 40 mg : ORAL Patient Dose: 1 tab(s) Oral See Notes.BID for 6 days, then QHS. (11:52 [facility]) metFORMIN: TABLET : Strength - 1,000 mg : ORAL Patient Dose: 1000 mg Oral once a day (in the morning). (11:53 [facility]) VITAL SIGNS VITAL SIGNS: BP: 138/78, Pulse: 68, Resp: 16, Temp: 97.7 (Oral), Pain: 0, O2 sat: 98 on Room Air, Time: 05/01/2016 11:46. (11:46 [facility]) BP: 123/76, Pulse: 61, Resp: 17, Temp: 98.4 (Oral), Pain: 0, O2 sat: 98 on Room Air, Time: 05/01/2016 13:10. (13:10 [facility]) PHYSICAL EXAM (14:15 JOHE) CONSTITUTIONAL: Vital Signs Reviewed, Patient appears non toxic, Patient alert and oriented to person, place and time. HEAD: Head exam normal, Head exam included findings of head atraumatic, normocephalic. EYES: Eye exam normal, Eye exam included findings of eyelids normal to inspection, Pupils equally round and reactive to light, Extraocular muscles intact, Conjunctiva normal, Sclera normal. ENT: Pharynx exam normal, not injected, no swelling, symmetrical, Uvula exam normal, midline, no edema, Mouth exam normal, mucous &a-1R&a+25V*p+0X*p4644V*c202B*c15G*c2P*p-0X&a-25V&a+1R Name: Benji Burton : 1955 M60 MedRec: [id number] AcctNum: [id number] Prepared: Daisy May 01, 2016 14:26 by Interface Page 2 of 4 pMD [facility] EMERGENCY RECORD membranes moist, no drooling, no lesions, no lacerations, no tongue elevation. NECK: Neck exam normal, Neck exam included findings of normal range of motion, Trachea midline, no carotid bruits. RESPIRATORY CHEST: Respiratory and chest exam normal, Breath sounds clear, No wheezing, No rales, No rhonchi, Breath sounds not absent, Breath sounds not diminished, CTAB. CARDIOVASCULAR: Cardiovascular assessment normal, Cardiovascular exam included findings of heart rate regular rate and rhythm, Heart sounds normal, Pedal pulses normal, RRR, no R/M/G. + pulses all ext., no bruits, no edema. ABDOMEN MALE: Abdominal exam normal, Abdominal exam included findings of abdomen nontender, Bowel sounds normal. BACK: Back exam normal, Back exam included findings of normal inspection, range of motion normal. UPPER EXTREMITY: Upper extremity exam normal, Upper extremity exam included findings of inspection normal, Range of motion normal, Motor strength normal, Sensation intact, Radial pulse normal. LOWER EXTREMITY: Lower extremity exam normal, Lower extremity exam included findings of inspection normal, Range of motion normal, Motor strength normal, Sensation intact, Posterior tibial pulse normal, Pedal pulse normal. NEURO: Neuro exam normal, Jeimy coma scale 15, Neuro exam findings include patient oriented to person, place and time, Speech normal, Gait normal, Cranial nerves intact, no focal motor deficits, no focal sensory deficits, no cerebellar deficits. SKIN: Skin exam normal, Skin exam included findings of skin warm, dry, and normal in color, no rash. MEDICATION ADMINISTRATION SUMMARY Drug Name: HumuLIN R, Dose Ordered: 5 units, Route: Subcutaneous, Status: Given, Time: 12:44 05/01/2016, Drug Name: metFORMIN, Dose Ordered: 1000 mg, Route: Oral, Status: Given, Time: 12:22 05/01/2016, Detailed record available in Medication Service section. DOCTOR NOTES (14:17 SHAYY) TEXT: Labs appear improved compared to last night, but FSG still elevated. Discussed results with patient. No evidence of ketones, and FSG improving, so will d/c home. Patient has f/u with PCP already tomorrow, so discussed continuing metformin, and f/u with PCP as scheduled. Discussed warning signs for immediate return to ED. PT. agreed to f/u or return to ED, and will continue to monitor FSG. DATA REVIEWED: Lab data reviewed. PROBLEM LIST No recorded problems &a-1R&a+25V*p+0X*u6995P*c202B*c15G*c2P*p-0X&a-25V&a+1R Name: Benji Burton [place] : 1955 M60 MedRec: [id number] AcctNum: [id number] Prepared: Daisy May 01, 2016 14:26 by Interface Page 3 of 4 pMD [facility] EMERGENCY RECORD DIAGNOSIS (13:38 SHAYY) FINAL: PRIMARY: Type 2 Diabetes mellitus (NIDDM) - uncontrolled. PRESCRIPTION No recorded prescriptions DISPOSITION PATIENT: Disposition Type: Discharge, Disposition: *Discharge Home, Condition: Good. (13:38 SHAYY) Patient left the department. (13:48 [facility]) Neves: SHAYY=MD Candice, Juwan [facility]=BENNY Lomas, Glo &a-1R&a+25V*p+0X*r2975N*c202B*c15G*c2P*p-0X&a-25V&a+1R Name: MichealBenji dias : 1955 M60 MedRec: [id number] AcctNum: [id number] Prepared: Daisy May 01, 2016 14:26 by Interface Page 4 of 4 pMD MTDD
--- NOTE | 2016-05-01 14:04 | PICIS ---
[facility] EMERGENCY RECORD TRIAGE (11:44 [facility]) TRIAGE NOTES: Pt reports a blood glucose over 600 as of 1030 this AM. Pt denies using insulin and has been diabetic for 15 years. (11:44 [facility]) PATIENT: NAME: Benji Burton, AGE: 60, GENDER: male, : Mon 1955, TIME OF GREET: Sun May 01, 2016 11:41, PREFERRED LANGUAGE: Bangladeshi, ETHNICITY: Not or , ECODE BILLING MAP: [facility], SSN: [id number], Zip Code: [address], KG WEIGHT: 86.18 (est.), PHONE: , , , PERSON ID: [id number], PCP: Kasey ALMONTE POLLACHI. (11:44 [facility]) COMPLAINT: ELEVATED BLOOD SUGAR/OVER 600. (11:44 [facility]) ADMISSION: URGENCY: 2 Emergent, ADMISSION SOURCE: Home, TRANSPORT: Walk-in, BED: ER -02. (11:44 [facility]) IMMUNIZATIONS: Flu vaccine not up to date, Tetanus not up to date. (11:45 [facility]) TRIAGE SCREENING: Patient denies suicidal ideation, Patient denies presence of domestic violence. (11:45 [facility]) PROVIDERS: TRIAGE NURSE: Glo Lomas RN. (11:44 [facility]) PREVIOUS VISIT ALLERGIES: No Known Drug Allergies. (11:44 [facility]) No Known Drug Allergies. (11:45 [facility]) KNOWN ALLERGIES No Known Drug Allergies CURRENT MEDICATIONS lisinopril: TABLET : Strength - 10 mg : ORAL Patient Dose: 1 tab(s) Oral 2 times a day. (11:52 [facility]) Protonix: TABLET, DELAYED RELEASE (ENTERIC COATED) : Strength - 40 mg : ORAL Patient Dose: 1 tab(s) Oral See Notes.BID for 6 days, then QHS. (11:52 [facility]) metFORMIN: TABLET : Strength - 1,000 mg : ORAL Patient Dose: 1000 mg Oral once a day (in the morning). (11:53 [facility]) VITAL SIGNS VITAL SIGNS: BP: 138/78, Pulse: 68, Resp: 16, Temp: 97.7 (Oral), Pain: 0, O2 sat: 98 on Room Air, Time: 05/01/2016 11:46. (11:46 [facility]) BP: 123/76, Pulse: 61, Resp: 17, Temp: 98.4 (Oral), Pain: 0, O2 sat: 98 on Room Air, Time: 05/01/2016 13:10. (13:10 [facility]) NURSING ASSESSMENT: FOCUSED (11:57 [facility]) CONSTITUTIONAL: Complex assessment performed, Patient arrives ambulatory, Gait steady, History obtained from patient, Patient appears comfortable, Patient cooperative, Patient alert, Oriented to person, place and time, Skin warm, Skin dry, Skin normal in color, Mucous membranes pink, Mucous membranes moist, Patient is &a-1R&a+25V*p+0X*c1136X*c202B*c15G*c2P*p-0X&a-25V&a+1R Name: Benji Burton : 1955 M60 MedRec: [id number] AcctNum: [id number] Prepared: Daisy May 01, 2016 14:32 by Interface Page 1 of 9 pMD [facility] EMERGENCY RECORD well-groomed, Pt reports having blood glucose over 600 measured x2 this AM. Glucose was 459 in ER. Pt reports hx diabetes x15 years, but says he has been able to keep his blood sugar "between 120 and 160 for years with no trouble. Pt doesn't use insulin and was prescribed metformin last night when he came to the ER for the same reasons. PAIN: Patient rates pain as 0 out of 10. EYES: Focused eye assessment finding include pupils equally round and reactive to light, no redness, no tearing. NEURO: Focused neuro assessment findings include patient alert, cooperative, No facial droop noted, Speech coherent. GCS: Eye opening: (4) - Spontaneous, Verbal: (5) - Oriented/conversive, Motor: (6) - Obeys commands/Spontaneous, GCS Total: 15. RESPIRATORY: Focused respiratory assessment findings include breath sounds clear. ABDOMEN: Focused abdominal assessment findings include abdomen soft. GENITOURINARY: Focused genitourinary assessment not applicable. MUSCULOSKELETAL: Focused musculoskeletal assessment findings include normal range of motion. LACERATION: Focused laceration assessment not applicable. SAFETY: Side rails up, Cart/Stretcher in lowest position, Family at bedside, Call light within reach, Hospital ID band on. NURSING PROCEDURE: BEDSIDE TESTING GLUCOSE: Glucose testing indicated for diabetic patient, Venous blood sample, Result (mg/dl) 459. (11:57 [facility]) Glucose testing indicated for diabetic patient, Glucose testing indicated for hyperglycemia, Capillary blood sample, Result (mg/dl) 383. (13:32 [facility]) FOLLOW-UP: After procedure, results given to Dr. Harvey. (11:57 [facility]) After procedure, results given to Dr. Harvey. (13:32 [facility]) SAFETY: Side rails up, Cart/Stretcher in lowest position, Family at bedside, Call light within reach, Hospital ID band on. (11:57 [facility]) Side rails up, Cart/Stretcher in lowest position, Family at bedside, Call light within reach, Hospital ID band on. (13:32 [facility]) NURSING PROCEDURE: DISCHARGE NOTE (13:46 [facility]) DISCHARGE: Patient discharged to home, ambulating without assistance, driving self, accompanied by //partner, Discharge instructions given to patient, Simple or moderate discharge teaching performed, by BENNY Cody, Patient treated and evaluated by physician. BELONGINGS: Belongings and valuables with patient upon arrival to the Emergency Department include:, Belongings and valuables with patient at time of discharge include:. &a-1R&a+25V*p+0X*c8962O*c202B*c15G*c2P*p-0X&a-25V&a+1R Name: Benji Burton Lin[place] : 1955 M60 MedRec: [id number] AcctNum: [id number] Prepared: Daisy May 01, 2016 14:32 by Interface Page 2 of 9 pMD [facility] EMERGENCY RECORD NURSING PROCEDURE: IV IV SITE 1: IV established, to the left forearm, using a 20 gauge catheter, in one attempt, IV site prepped with chloraprep, Saline lock established, Flushed with normal saline (mls): 10, Labs drawn at time of placement, labeled in the presence of the patient and sent to lab, Notes: ABHIJEET established by BENNY Cody with use of IV catheter and start kit. SL established with no swelling, drainage, or redness. Secured with clear Tegaderm. (12:19 [facility]) FOLLOW-UP SITE 1: After procedure, no drainage at IV site, After procedure, no swelling at IV site, After procedure, no redness at IV site, IV discontinued, due to patient being discharged, catheter intact. (13:43 [facility]) SAFETY: Side rails up, Cart/Stretcher in lowest position, Family at bedside, Call light within reach, Hospital ID band on. (12:19 [facility]) NURSING PROCEDURE: URINE COLLECTION (12:12 [facility]) URINE COLLECTION MALE: Urine collected by void, output amount (mL) 170, urine clear in color, and clear, Specimen labeled in the presence of the patient and sent to lab. SAFETY: Side rails up, Cart/Stretcher in lowest position, Family at bedside, Call light within reach, Hospital ID band on. ORDER DETAILS Order Name: BLOOD GLUCOSE MONITOR, Status: Done, Time: 11:57 05/01/2016, User: [facility], - Ordered for: MD Harvey John, - Entered by: BENNY Lomas, [facility] Daisy May 01, 2016 11:54, - Quantity: 1, Order Name: CBC with Differential, Status: Active, Time: 12:03 05/01/2016, User: SHAYY, - Ordered for: MD Harvey John, - Entered by: MD Harvey John - Sun May 01, 2016 12:03, - Quantity: 1, Order Name: Comprehensive Metabolic Panel, Status: Active, Time: 12:03 05/01/2016, User: SHAYY, - Ordered for: MD Harvey John, - Entered by: MD Harvey John - Sun May 01, 2016 12:03, - Quantity: 1, Order Name: SALINE LOCK, Status: Done, Time: 12:19 05/01/2016, User: [facility], - Ordered for: MD Harvey John, - Entered by: MD Harvey John - Sun May 01, 2016 12:03, - Quantity: 1, Order Name: Urinalysis with Microscopic, Status: Active, Time: 12:03 05/01/2016, User: SHAYY, - Ordered for: MD Harvey John, - Entered by: MD Harvey John - Sun May 01, 2016 12:03, - Quantity: 1. &a-1R&a+25V*p+0X*n7359S*c202B*c15G*c2P*p-0X&a-25V&a+1R Name: Benji Burton : 1955 M60 MedRec: [id number] AcctNum: [id number] Prepared: MonMay 01, 2016 14:32 by Interface Page 3 of 9 pMD [facility] EMERGENCY RECORD MEDICATION ADMINISTRATION SUMMARY Drug Name: HumuLIN R, Dose Ordered: 5 units, Route: Subcutaneous, Status: Given, Time: 12:44 05/01/2016, Drug Name: metFORMIN, Dose Ordered: 1000 mg, Route: Oral, Status: Given, Time: 12:22 05/01/2016, Detailed record available in Medication Service section. MEDICATION SERVICE HumuLIN R: Order: HumuLIN R (insulin regular, human) - Dose: 5 units : Subcutaneous Schedule: Now Ordered by: Juwan Harvey MD Entered by: MD Daisy Lewis May 01, 2016 12:40 , Acknowledged by: BENNY Briceño May 01, 2016 12:40 Documented as given by: BENNY Briceño May 01, 2016 12:44 Patient, Medication, Dose, Route and Time verified prior to administration. Correct patient, time, route, dose and medication confirmed prior to administration, Patient advised of actions and side-effects prior to administration, Allergies confirmed and medications reviewed prior to administration, Advised not to ambulate without assistance, Patient in position of comfort, Side rails up, Cart in lowest position, Family at bedside, Call light in reach. metFORMIN: Order: metFORMIN (metformin HCl) - Dose: 1000 mg : Oral Schedule: Now Ordered by: Juwan Harvey MD Entered by: MD Daisy Lewis May 01, 2016 12:18 , Acknowledged by: BENNY Mcmahon May 01, 2016 12:20 Documented as given by: BENNY Mcmahon May 01, 2016 12:22 Patient, Medication, Dose, Route and Time verified prior to administration. Amount given: 1000 mg, Site: Medication administered P.O., Correct patient, time, route, dose and medication confirmed prior to administration, Patient advised of actions and side-effects prior to administration, Allergies confirmed and medications reviewed prior to administration, Patient tolerated procedure well, Administered by BENNY Cody, Patient in position of comfort, Side rails up, Cart in lowest position, Family at bedside, Call light in reach. HPI DIABETES (14:11 E) CHIEF COMPLAINT: Patient presents for evaluation of hyperglycemia, Pre-hospital or triage blood sugar greater than 400. HISTORIAN: History provided by patient, Pt. reports seen here yesterday for hyperglycemia > 600. Got 3 liters IVF, and 10 units insulin, then given metformin script, but has not yet started it. States FSG today was 600 again this am, so came back to ED. Reports polyuria/dipsia, but no other symptoms or &a-1R&a+25V*p+0X*b6237N*c202B*c15G*c2P*p-0X&a-25V&a+1R Name: Benji Burton : 1955 M60 MedRec: [id number] AcctNum: [id number] Prepared: Daisy May 01, 2016 14:32 by Interface Page 4 of 9 pMD [facility] EMERGENCY RECORD complaints. No F&C, N&V, vision changes, CP, SOB or abd. pain. Reports long history of type 2 DM controlled by diet and exercise, but has had trouble since being treated for PUD recently. LOCATION: Symptoms are generalized. SEVERITY: Maximum severity of symptoms mild, Currently symptoms are mild. TIME COURSE: Gradual onset of symptoms, weeks ago, There has been no change in the patient's symptoms over time. ASSOCIATED WITH: Associated symptoms reviewed, No associated abdominal pain, No associated alcohol use, No associated history of chest pain, No associated decrease in oral intake, No associated diaphoresis, No associated dizziness, No associated fever, No associated illness, No associated injury, No associated loss of consciousness, Associated with polydipsia, No associated polyphagia, Associated with polyuria, No associated stress, No associated syncope, No associated upper respiratory infection, No associated vomiting, No associated weakness, Denies any other complaints. EXACERBATED BY: Patient's condition exacerbated by nothing. RELIEVED BY: Patient's condition relieved by nothing because patient has not tried anything for relief. ROS (14:14 [facility]) CONSTITUTIONAL: Historian denies chills, denies fatigue, denies fever, denies malaise. EYES: Historian denies eye pain, denies eye redness, denies vision changes. ENT: Historian denies otalgia, denies rhinorrhea, denies sore throat. CARDIOVASCULAR: Historian denies chest pain, denies edema, denies syncope, denies palpitations. RESPIRATORY: Historian denies cough, denies shortness of breath, denies wheezing. GI: Historian denies abdominal pain, denies diarrhea, denies nausea, denies vomiting. GENITOURINARY MALE: Historian denies dysuria, denies hematuria, reports urinary frequency, denies urinary urgency. MUSCULOSKELETAL: Historian denies back pain, denies neck pain. SKIN: Historian denies rash, denies skin changes. NEUROLOGIC: Historian denies dizziness, denies gait changes, denies headache, denies lethargy, denies mental status changes, denies paresthesias, denies seizures. ENDOCRINE: Historian denies cold intolerance, denies heat intolerance, reports polydipsia, reports polyuria, denies skin changes. PSYCHIATRIC: Historian denies alcohol abuse, denies drug abuse. NOTES: All systems reviewed, negative except as described above. PAST MEDICAL HISTORY (11:45 [facility]) MEDICAL HISTORY: Notes: HERNIA, Past medical history includes history of hypertension. Past medical history includes &a-1R&a+25V*p+0X*r0963T*c202B*c15G*c2P*p-0X&a-25V&a+1R Name: Benji Burton : 1955 M60 MedRec: [id number] AcctNum: [id number] Prepared: Daisy May 01, 2016 14:32 by Interface Page 5 of 9 D [facility] EMERGENCY RECORD history of diabetes, Type II. MALE SURGICAL HISTORY: MASS REMOVED FROM SHOULDER (15 YEARS AGO), Surgical history of hernia repair, las kidney stone was over 1 year ago; hx of lithotripsy many yrs ago. PSYCHIATRIC HISTORY: No previous psychiatric history. SOCIAL HISTORY: Patient denies alcohol use, Patient denies drug use, Patient is a former tobacco user, Patient is a former tobacco user, smoked cigarettes, Patient quit smoking more than 10 years ago. PHYSICAL EXAM (14:15 [facility]) CONSTITUTIONAL: Vital Signs Reviewed, Patient appears non toxic, Patient alert and oriented to person, place and time. HEAD: Head exam normal, Head exam included findings of head atraumatic, normocephalic. EYES: Eye exam normal, Eye exam included findings of eyelids normal to inspection, Pupils equally round and reactive to light, Extraocular muscles intact, Conjunctiva normal, Sclera normal. ENT: Pharynx exam normal, not injected, no swelling, symmetrical, Uvula exam normal, midline, no edema, Mouth exam normal, mucous membranes moist, no drooling, no lesions, no lacerations, no tongue elevation. NECK: Neck exam normal, Neck exam included findings of normal range of motion, Trachea midline, no carotid bruits. RESPIRATORY CHEST: Respiratory and chest exam normal, Breath sounds clear, No wheezing, No rales, No rhonchi, Breath sounds not absent, Breath sounds not diminished, CTAB. CARDIOVASCULAR: Cardiovascular assessment normal, Cardiovascular exam included findings of heart rate regular rate and rhythm, Heart sounds normal, Pedal pulses normal, RRR, no R/M/G. + pulses all ext., no bruits, no edema. ABDOMEN MALE: Abdominal exam normal, Abdominal exam included findings of abdomen nontender, Bowel sounds normal. BACK: Back exam normal, Back exam included findings of normal inspection, range of motion normal. UPPER EXTREMITY: Upper extremity exam normal, Upper extremity exam included findings of inspection normal, Range of motion normal, Motor strength normal, Sensation intact, Radial pulse normal. LOWER EXTREMITY: Lower extremity exam normal, Lower extremity exam included findings of inspection normal, Range of motion normal, Motor strength normal, Sensation intact, Posterior tibial pulse normal, Pedal pulse normal. NEURO: Neuro exam normal, [place] coma scale 15, Neuro exam findings include patient oriented to person, place and time, Speech normal, Gait normal, Cranial nerves intact, no focal motor deficits, no focal sensory deficits, no cerebellar deficits. SKIN: Skin exam normal, Skin exam included findings of skin warm, dry, and normal in color, no rash. LAB INTERPRETATION (14:18 [facility]) &a-1R&a+25V*p+0X*m6824S*c202B*c15G*c2P*p-0X&a-25V&a+1R Name: Benji Burton : 1955 M60 MedRec: [id number] AcctNum: [id number] Prepared: Daisy May 01, 2016 14:32 by Interface Page 6 of 9 pMD [facility] EMERGENCY RECORD INTERPRETATION: I reviewed the lab results, All labs normal except as noted below, CBC normal, Chemistry abnormal, Sodium decreased, Glucose elevated, Bicarbonate decreased, Liver functions abnormal, AST(SGOT) elevated, ALT(SGPT) elevated, Urinalysis abnormal, leukocytes negative, positive for erythrocytes, nitrites negative, bilirubin negative, bacteria negative, ketones negative, positive for glucose, protein negative. EVENTS TRANSFER: Triage to Emergency Emergency Room -02. (Daisy May 01, 2016 11:44 [facility]) Removed from Emergency Emergency Room -02. (13:48 [facility]) DOCTOR NOTES (14:17 [facility]) TEXT: Labs appear improved compared to last night, but FSG still elevated. Discussed results with patient. No evidence of ketones, and FSG improving, so will d/c home. Patient has f/u with PCP already tomorrow, so discussed continuing metformin, and f/u with PCP as scheduled. Discussed warning signs for immediate return to ED. PT. agreed to f/u or return to ED, and will continue to monitor FSG. DATA REVIEWED: Lab data reviewed. PROBLEM LIST No recorded problems DIAGNOSIS (13:38 [facility]) FINAL: PRIMARY: Type 2 Diabetes mellitus (NIDDM) - uncontrolled. DISPOSITION PATIENT: Disposition Type: Discharge, Disposition: *Discharge Home, Condition: Good. (13:38 [facility]) Patient left the department. (13:48 [facility]) INSTRUCTION (13:39 [facility]) DISCHARGE: DIABETES, GENERAL INFO, DIABETIC HYPERGLYCEMIA. FOLLOWUP: Kasey ALMONTE, GAYLA, Internal Medicine, [address] [place] [id number], [phone], Follow up with Primary Care Physician in 1 day. SPECIAL: Follow-up with your PCP. PRESCRIPTION No recorded prescriptions IMAGING (13:50 [facility]) *DISCHARGE INSTRUCTIONS RECEIPT: Image captured from scanner. *SUPPLY CHARGE SHEET: Image captured from scanner. &a-1R&a+25V*p+0X*m0302K*c202B*c15G*c2P*p-0X&a-25V&a+1R Name: Benji Burton : 1955 M60 MedRec: [id number] AcctNum: [id number] Prepared: Daisy May 01, 2016 14:32 by Interface Page 7 of 9 D [facility] EMERGENCY RECORD ADMIN (14:19 [facility]) DIGITAL SIGNATURE: MD Harvey John. RESULTS LABORATORY: CBC with Differential Collection DT: [place] May 01, 2016 12:26, White Blood Cell (WBC) Count 6.0 thou/uL, Range (4.8-10.8), Red Blood Cell (RBC) Count 5.03 mill/uL, Range (4.70-6.10), Hemoglobin 15.8 g/dL, Range (14.0-18.0), Hematocrit 46.2 %, Range (42.0-52.0), Mean Corpuscular Volume 91.9 fl, Range (80.0-94.0), *Mean Corpuscular Hemoglobin 31.5 - H pg, Range (27.0-31.0), Mean Corpuscular HGB CONC 34.3 g/dL, Range (32.0-36.0), *RBC Distribution Width 10.3 - L %, Range (11.5-14.5), Platelet Count 171 thou/uL, Range (130-400), Mean Platelet Volume 10.0 fL, Range (7.4-10.4), %Neutrophils 58.3 %, Range (42.0-75.0), %Lymphocytes 23.9 %, Range (21.0-51.0), %Monocytes 7.0 %, Range (0.0-10.0), %Eosinophils 9.0 %, Range (0.0-10.0), *%Basophils 1.8 - H %, Range (0.0-1.0), #Neutrophils 3.5 thou/uL, Range (1.40-6.50), #Lymphocytes 1.4 thou/uL, Range (1.20-3.40), #Monocytes 0.4 thou/uL, Range (0.11-0.59), #Eosinphils 0.5 thou/uL, Range (0.0-0.7), #Basophils 0.1 thou/uL, Range (0.0-0.2). (12:33 [facility]) Urinalysis with Microscopic Collection DT: Daisy May 01, 2016 12:26, Color Straw , Range (Yellow), Clarity Clear , Range (Clear), Specific [place], Urine 1.015 , Range (1.005-1.030), pH, Urine 6.0 , Range (5.0-9.0), Leukocyte Negative , Range (Negative), Nitrite Negative , Range (Negative), Protein, Urine (Dipstick) Negative mg/dL, Range (Neg-Trace), *Glucose, Urine (Dipstick) 500 - H mg/dL, Range (Negative), Ketone, Urine Negative mg/dL, Range (Negative), Urobilinogen 0.2 mg/dL, Range (0.2-1.0), Bilirubin Negative , Range (Negative), *Blood, Urine Trace - H , Range (Negative), RBC/HPF 0-3 HPF, Range (0-3), Squamous Epithelial 0-3 HPF, Range (0-3). (12:40 [facility]) Comprehensive Metabolic Panel Collection DT: Daisy May 01, 2016 12:26, *Sodium 134 - L mmol/L, Range (136-145), Potassium 4.4 mmol/L, Range (3.5-5.1), Chloride 104 mmol/L, Range (98-107), *Carbon Dioxide 21 - L mmol/L, Range (22-29), Anion Gap 13 mmol/L, Range (10-20), BUN (Urea Nitrogen) 14 mg/dL, Range (8.4-25.7), &a-1R&a+25V*p+0X*h8331S*c202B*c15G*c2P*p-0X&a-25V&a+1R Name: Benji Burton : 1955 M60 MedRec: [id number] AcctNum: [id number] Prepared: Daisy May 01, 2016 14:32 by Interface Page 8 of 9 pMD [facility] EMERGENCY RECORD Creatinine 1.29 mg/dL, Range (0.7-1.3), Estimated GFR-MDRD 57 , Reference Range for Estimated GFR: Greater than 90, mL/min/1.73 m2 NOTE: The MDRD equation has not been validated for use, with the elderly (over 70 years of age), women, patients with, serious comorbid condition or persons with extremes of body size, muscle, mass, or nutritional status. , *Glucose 550 - H mg/dL, Range (70-105), Calcium 9.3 mg/dL, Range (7.8-10.44), Bilirubin, Total 0.5 mg/dL, Range (0.2-1.2), Protein, Total 7.0 g/dL, Range (6.0-8.3), NOTE: Plasma values are generally 0.3 to 0.5 g/dL higher than serum values, due to the presence of fibrinogen. , Albumin 3.9 g/dL, Range (3.5-5.0), Globulin 3.1 g/dL, Range (2.4-3.5), Alb/Glob Ratio 1.3 g/dL, Range (1.2-2.2), Alkaline Phosphatase 66 U/L, Range (40-150), *AST (SGOT) 35 - H U/L, Range (5-34), *ALT (SGPT) 65 - H U/L, Range (0-55). (13:00 [facility]) Neves: SHAYY=MD Candice, Juwan BARBER=BENNY Moreno Jason [facility]=BENNY Lomas, Glo &a-1R&a+25V*p+0X*t4830L*c202B*c15G*c2P*p-0X&a-25V&a+1R Name: MichealBenji dias : 1955 M60 MedRec: [id number] AcctNum: [id number] Prepared: Daisy May 01, 2016 14:32 by Interface Page 9 of 9 pMD MTDD
== END 2016-05-01 13:50 | disposition home or self-care (01) ==
LOC: NAV ERS 11:40
DX: E11.9 Type 2 diabetes mellitus without complications (principal); I10 Essential (primary) hypertension; Z87.891 Personal history of nicotine dependence
CPT/HCPCS: 36416; 80053; 81001; 85025; 99284; J1815

== ENCOUNTER 2016-05-10 08:14 | Outpatient (CLI) | payer BC ==
[2016-05-10 13:29] LABS: Hemoglobin A1c 11.8 % (4.0-6.0)
== END 2016-05-10 08:15 ==
LOC: NAVSJIPCSP 08:14
PROVIDERS: ATTEND Internal Medicine
DX: E78.5 Hyperlipidemia, unspecified (principal); E11.9 Type 2 diabetes mellitus without complications
CPT/HCPCS: 36415; 80061; 83036

== ENCOUNTER 2018-03-07 22:33 | Emergency (ER) | payer BC ==
[~2018-03-07 22:33] MED LIST: Iopamidol 370 76% 100 ML VIAL ONE
[2018-03-07] MEDS ORDERED: Meclizine HCl 25 MG TAB ONE (23:01)
[2018-03-07] MEDS ORDERED: Sodium Chloride 0.9% 1,000 ML ONE (23:01)
[2018-03-07] MEDS ORDERED: Ondansetron PF 4 MG/2 ML Vial ONE (23:01)
[2018-03-07 23:12] LABS: #Basophils 0.1 thou/uL (0.0-0.2); #Eosinphils 0.2 thou/uL (0.0-0.7); #Lymphocytes 1.3 thou/uL (1.20-3.40); #Monocytes 0.4 thou/uL (0.11-0.59); #Neutrophils 7.9 thou/uL (1.40-6.50); %Basophils 0.8 % (0.0-1.0); %Eosinophils 1.6 % (0.0-10.0); %Lymphocytes 12.8 % (21.0-51.0); %Monocytes 3.9 % (0.0-10.0); %Neutrophils 80.9 % (42.0-75.0); Hemoglobin 15.7 g/dL (14.0-18.0); Mean Corpuscular HGB CONC 33.6 g/dL (32.0-36.0); Mean Corpuscular Hemoglobin 30.8 pg (27.0-31.0); Mean Corpuscular Volume 91.7 fL (78.0-98.0); Mean Platelet Volume 9.9 fL (7.4-10.4); Platelet Count 219 thou/uL (130-400); RBC Distribution Width 11.2 % (11.5-14.5); Red Blood Cell (RBC) Count 5.09 mill/uL (4.70-6.10); White Blood Cell (WBC) Count 9.8 thou/uL (4.8-10.8)
--- NOTE | 2018-03-07 23:26 | CT ---
CT BRAIN 03/07/18 HISTORY: Vertigo. Complaining of vomiting. Dizziness. Noncontrast contrast enhanced CT images of the brain obtained. The brain is unremarkable. No evidence of intracranial masses, hemorrhages, strokes or contusions seen. IMPRESSION: Normal CT brain. POS: [facility]
[2018-03-07 23:27] LABS: CKMB 1.6 ng/mL (0-6.6); Troponin I Less than 0.010 ng/mL (< 0.028)
[2018-03-07 23:29] LABS: ALT (SGPT) 28 U/L (8-55); AST (SGOT) 43 U/L (5-34); Albumin 4.1 g/dL (3.4-4.8); Alkaline Phosphatase 39 U/L (40-150); BUN (Urea Nitrogen) 15 mg/dL (8.4-25.7); Bilirubin, Total 0.6 mg/dL (0.2-1.2); Calc. Creatinine Clearance 0 mL/min (70-130); Calcium 9.2 mg/dL (7.8-10.44); Carbon Dioxide 20 mmol/L (23-31); Chloride 104 mmol/L (98-107); Estimated GFR-MDRD 68; Globulin 3.8 g/dL (2.4-3.5); Glucose 228 mg/dL (80-115); Protein, Total 7.9 g/dL (5.8-8.1); Sodium 135 mmol/L (136-145)
[2018-03-07 23:31] LABS: Potassium 4.5 mmol/L (3.5-5.1)
[2018-03-07 23:35] LABS: Anion Gap 16 mmol/L (10-20)
[2018-03-08] MEDS ORDERED: Diazepam 5 MG TAB ONE (00:16)
[2018-03-08] MEDS ORDERED: Sodium Chloride 0.9% 1,000 ML ONE (01:03)
[2018-03-08] MEDS ORDERED: Ondansetron PF 4 MG/2 ML Vial ONE (01:04)
--- NOTE | 2018-03-08 08:20 | CT ---
PRELIMINARY REPORT/[facility]/EMERGENTY AFTER-HOURS PROCEDURE CT Angiography Neck With Intravenous Contrast EXAM DATE/TIME: 03/08/2018 1:49 AM CLINICAL HISTORY: 62 years old, male; Pain; Nausea / vomiting / headache. Onset at 1800 today TECHNIQUE: Axial computed tomographic angiography images of the neck with intravenous contrast using CT angiogra phy protocol. All CT scans at this facility use at least one of these dose optimization techniques: automated expos ure control; mA and/or kV adjustment per patient size (includes targeted exams where dose is matched to clinical indication); or iterative reconstruction. Coronal and sagittal reformatted images were created and reviewed. 3D reconstructed images were created and reviewed. CONTRAST: 96 ml of ISOVUE 370 administered intravenously. COMPARISON: No relevant prior studies available. FINDINGS: VASCULATURE: Right common carotid artery: Normal. No significant stenosis. No dissection or occlusion. Right internal carotid artery: Small amount of calcific plaque in the right carotid bulb region witho ut significant stenosis. Right external carotid artery: Normal. No occlusion or significant stenosis. Right vertebral artery: Normal. No significant stenosis. No dissection or occlusion. Left common carotid artery: Normal. No significant stenosis. No dissection or occlusion. Left internal carotid artery: Small amount of calcific plaque in the left carotid bulb region without stenosis. Left external carotid artery: Normal. No occlusion or significant stenosis. Left vertebral artery: Normal. No significant stenosis. No dissection or occlusion. NECK: Sinuses: Maxillary sinus retention cysts. Bones/joints: No acute fracture. Soft tissues: Normal. No significant soft tissue swelling. IMPRESSION: CTA neck within normal limits. COMMENT: Degree of carotid stenosis was determined using NASCET criteria: Mild: <50% stenosis. Moderate: 50-69 % stenosis. Severe: 70-94% stenosis. Near occlusion: 95-99% stenosis. Thank you for allowing us to participate in the care of your patient. Dictated and Authenticated by: Bakari Urbina MD 03/08/2018 2:48 AM Central Time ([place] & [place]) FINAL REPORT CTA NECK WITH IV CONTRAST AND 3D POSTPROCESSING: Date: 03/08/18 FINDINGS/IMPRESSION: I agree with the preliminary report given by Kaycee. POS: [facility]
--- NOTE | 2018-03-08 15:29 | CT ---
PRELIMINARY REPORT/[facility]/EMERGENCY AFTER HOURS PROCEDURE: EXAM: CT Angiography Head With Intravenous Contrast EXAM DATE/TIME: 03/08/2018 1:49 AM CLINICAL HISTORY: 62 years old, male; Pain; Nausea / vomiting / headache. Onset at 1800 today TECHNIQUE: Axial computed tomographic angiography images of the head with intravenous contrast using CT angiogra phy protocol. COMPARISON: No relevant prior studies available. FINDINGS: Right internal carotid artery: Unremarkable. Intracranial segment is patent with no significant steno sis. No aneurysm. Right anterior cerebral artery: Unremarkable. No occlusion or significant stenosis. No aneurysm. Right middle cerebral artery: Unremarkable. No occlusion or significant stenosis. No aneurysm. Right posterior cerebral artery: Unremarkable. No occlusion or significant stenosis. No aneurysm. Right vertebral artery: Unremarkable. No occlusion or significant stenosis. No aneurysm. Left internal carotid artery: Unremarkable. Intracranial segment is patent with no significant stenos is. No aneurysm. Left anterior cerebral artery: Unremarkable. No occlusion or significant stenosis. No aneurysm. Left middle cerebral artery: Unremarkable. No occlusion or significant stenosis. No aneurysm. Left posterior cerebral artery: Unremarkable. No occlusion or significant stenosis. No aneurysm. Left vertebral artery: Unremarkable. No occlusion or significant stenosis. No aneurysm. Basilar artery: Unremarkable. No occlusion or significant stenosis. No aneurysm. IMPRESSION: CTA head within normal limits. Thank you for allowing us to participate in the care of your patient. Dictated and Authenticated by: Bakari Urbina MD 03/08/2018 2:48 AM Central Time ([place] & [place]) FINAL REPORT CTA HEAD WITH IV CONTRAST AND 3D POSTPROCESSING: Date: 03/08/18 FINDINGS/IMPRESSION: I agree with the preliminary report given by Kaycee. POS: [facility]
== END 2018-03-08 02:15 | disposition short-term general hospital (02) ==
LOC: NAV ERS 22:33
DX: R42 Dizziness and giddiness (principal); R11.2 Nausea with vomiting, unspecified; I10 Essential (primary) hypertension; E11.9 Type 2 diabetes mellitus without complications; Z87.891 Personal history of nicotine dependence; Z79.899 Other long term (current) drug therapy; Z79.84 Long term (current) use of oral hypoglycemic drugs
CPT/HCPCS: 70450; 70496; 70498; 80053; 82553; 83605; 84484; 85025; 93005; 94760; 96361; 96374; J2405; J7050

== ENCOUNTER 2023-02-19 19:25 | Emergency (ER) | payer BC, MEDICARE ==
[2023-02-19] MEDS ORDERED: Ketorolac Tromethamine 30 MG/ML VIAL ONE (20:07)
== END 2023-02-19 20:25 | disposition home or self-care (01) ==
LOC: NAV ERS 19:25
DX: K40.90 Unilateral inguinal hernia, without obstruction or gangrene, not specified as recurrent (principal); I10 Essential (primary) hypertension; E11.9 Type 2 diabetes mellitus without complications; Z87.891 Personal history of nicotine dependence; Z79.4 Long term (current) use of insulin
CPT/HCPCS: 96372; 99283; J1885